=== PATIENT | female | born 1985 | race Caucasian/White ===

== ENCOUNTER → 2018-01-21 07:53 | Outpatient (CLI) | payer OTHER, SELFPAY ==
[2018-01-21 09:41] LABS: Hematocrit 32.3 % (36-46); Hemoglobin 11.2 g/dL (12.0-16.0)
[2018-01-21 11:00] LABS: GTT (PREG) 1 Hour PP 50gm Dose 114 mg/dL (76-139)
== END ==
PROVIDERS: PCP Internal Medicine; Visit Provider Obstetrics & Gynecology
DX: Z34.82 Encounter for supervision of other normal pregnancy, second trimester (principal)
CPT/HCPCS: 36415; 82950; 85014; 85018

== ENCOUNTER → 2018-03-10 10:30 | Outpatient (CLI) | payer OTHER, SELFPAY ==
[2018-03-16 15:16] LABS: Bile Acids, Total 5.5
== END ==
PROVIDERS: PCP Internal Medicine; Visit Provider Obstetrics & Gynecology
DX: L29.9 Pruritus, unspecified (principal)
CPT/HCPCS: 36415; 82239

== ENCOUNTER → 2018-03-24 16:17 | Outpatient (CLI) | payer OTHER, SELFPAY | END | disposition home or self-care (01) | PROVIDERS: PCP Internal Medicine; Visit Provider Obstetrics & Gynecology | DX: O60.03 Preterm labor without delivery, third trimester (principal); Z3A.34 34 weeks gestation of pregnancy | CPT/HCPCS: 59025; G0378; G0379 ==

== ENCOUNTER → 2018-03-31 08:14 | Outpatient (CLI) | payer OTHER, SELFPAY ==
[2018-04-01 08:38] LABS: Strep Grp B PCR NEG for Grp B Strep
== END ==
PROVIDERS: PCP Internal Medicine; Visit Provider Obstetrics & Gynecology
DX: Z34.83 Encounter for supervision of other normal pregnancy, third trimester (principal)
CPT/HCPCS: 87653

== ENCOUNTER 2018-04-02 15:48 | Outpatient (CLI) | payer OTHER, SELFPAY ==
[2018-04-02] MEDS: TERBUTALINE 1 MG/ML VIAL 0.25 MG SUBCUT (17:03)
== END 2018-04-02 17:33 | disposition home or self-care (01) ==
LOC: LABOR 17:12 → OB 04-03 14:57
PROVIDERS: PCP Internal Medicine; Visit Provider Obstetrics & Gynecology
DX: Z34.83 Encounter for supervision of other normal pregnancy, third trimester (principal); Z3A.36 36 weeks gestation of pregnancy; M54.5 Low back pain
CPT/HCPCS: 59025; 59050; 96372; G0378; G0379

== ENCOUNTER 2018-04-14 15:05 | Inpatient (IN) | payer OTHER, SELFPAY ==
[2018-04-14] MEDS: LACTATED RINGERS 1,000 ML 100 ML IV (16:34)
[2018-04-14 16:44] LABS: Add Manual Diff / Slide Review NO; Basophils Percent Auto 0.6 % (0-2); Eosinophils Percent Auto 1.9 % (2-4); Hematocrit 31.7 % (36-46); Hemoglobin 10.5 g/dL (12.0-16.0); Lymphocytes Percent Auto 13.1 % (25-40); Mean Corpuscular Hemoglobin 25.8 PG (26-34); Mean Corpuscular Volume 78.2 fL (80-100); Monocytes Percent Auto 6.6 % (3-14); Neutrophils Absolute Auto 9900 /uL (3000-5900); Neutrophils Percent Auto 77.8 % (50-75); Platelet Count 200 X10^3/uL (150-400); Red Blood Cell Count 4.05 X10^6/uL (4.0-5.2); Red Cell Distribution Width 14.3 % (11.6-14.8); White Blood Cell Count 12.7 X10^3/uL (4.5-11.0)
[2018-04-14 17:06] VITALS: BP 101/62
[2018-04-14] MEDS: LACTATED RINGERS 1,000 ML 125 ML IV ×2 (18:05→22:15)
[2018-04-14] MEDS: CALCIUM CARBONATE 500 MG TAB 1000 MG PO (18:38)
[2018-04-14] MEDS: ONDANSETRON 4 MG/2 ML INJ IV (20:00)
[2018-04-14] MEDS: OXYTOCIN PREMIX 30 UNIT/500 ML PLAST..BAG IV (20:49)
--- NOTE | 2018-04-15 | PATH_ITS ---
[facility] Accession Number: [id number] . 01 Material submitted: . SEGMENTS OF BILATERAL FALLOPIAN TUBES . 02 Diagnosis: Segments of Bilateral Fallopian Tubes, Tubal Ligation: Complete cross-section of segments of fallopian tube x2. MRV/04/17/2018 . 02 Electronically signed: . Linh Hobson MD, Pathologist NPI- [id number] . 01 Gross description: . Received one formalin-filled container labeled with the patient's name and labeled segments of fallopian tubes. The specimen consists of two non-fimbriated, partial cylindrical-shaped portions of tissue. The first measures 0.9 x 0.5 x 0.4 cm; inked blue, trisected, and entirely submitted in cassette A1. The second piece measures 0.7 x 0.5 x 0.5 cm; inked blue, trisected, and entirely submitted in cassette A2. ([id number]) /FRR . 02 Pathologist provided ICD-10: Z30.2 . 02 CPT . 733813 Performed at: 01 [facility] [address], [place], [place] [id number] MD Rl Quiles MD Phone: [phone] Performed at: 02 [facility] [address] [place], [place] [id number] MD Nakul Rodriguez MD Phone: [phone]
[2018-04-15] MEDS: KETOROLAC 30 MG/ML VIAL IV ×2 (00:55→07:19)
[2018-04-15] MEDS: OXYCODONE/ACETAMINOPHEN 5/325 TABLET 2 TAB PO ×4 (03:28→20:17)
[2018-04-15 05:26] LABS: Hematocrit 29.3 % (36-46); Hemoglobin 9.6 g/dL (12.0-16.0)
[2018-04-15] MEDS: LACTATED RINGERS 1,000 ML 750 ML IV (13:30)
--- NOTE | 2018-04-15 14:01 | SUR.OPER ---
Supine on padded OR bed, head on pillow, arms secured on padded arm boards at <90 degrees abduction, legs uncrossed, safety belt at thigh, tape over blanket over lower legs.
[2018-04-15] MEDS: BUPIVACAINE 0.5% W/ EPI (PF) VIAL 30 ML INJ (14:13)
[2018-04-15 14:26] VITALS: BP 95/62; PULSE 80; RESP 10; TEMP 36.2; O2SAT 95
[2018-04-15 14:32] VITALS: BP 100/60; PULSE 82; RESP 10; O2SAT 95
[2018-04-15 14:37] VITALS: BP 111/79; PULSE 86; RESP 12; O2SAT 97
[2018-04-15 14:42] VITALS: BP 101/68; PULSE 76; RESP 12; TEMP 36.1; O2SAT 96
[2018-04-15 14:46] VITALS: BP 103/64; PULSE 76; RESP 12; O2SAT 96
[2018-04-15] MEDS: IBUPROFEN 600 MG TABLET PO (18:38)
[2018-04-15] MEDS: PRENATAL VIT,CALC/IRON/FOLIC 1 TABLET 1 TAB PO (20:28)
[2018-04-15] MEDS: DOCUSATE 250 MG CAPSULE PO (20:30)
[2018-04-16] MEDS: IBUPROFEN 600 MG TABLET PO ×2 (00:09→07:51)
[2018-04-16] MEDS: OXYCODONE/ACETAMINOPHEN 5/325 TABLET 2 TAB PO ×3 (00:10→09:44)
--- NOTE | 2018-05-07 15:56 | PM.OBHP.1 ---
OB HPI Date/Time Date of admission: 04/14/18 Date Patient Seen: 04/14/18 Time Patient Seen: 17:30 History of Present Condition Chief complaint: labor & delivery : 5 Para: 4 Estimated Date of Delivery: 04/29/18 Estimated Gestational Age (weeks): 37+ 6 Narrative: Renea Davidson is a 32 year old female 5 para 4 at 37 and 6 7th weeks gestation Indications Indication for induction OB: history of rapid labor and other (Advanced cervical dilation) History of Present care: good care, initiated at week # (9), number of visits (12) and pounds weight gain (29) Dating criteria: LMP confirmed by 1st trimester US Ultrasounds: normal mid trimester US Obstetrical complications: none Medical complications: none Preadmission Labs Blood type: B (+) positive -: Antibody screen: negative, GBS status: negative, HBsAG: negative, HIV: negative, HSV 1: positive, HSV 2: negative and RPR/VDLR: negative -: Chlamydia screen: not detected and Gonorrhea screen: not detected -: Rubella: immune and Varicella: immune HCAB: negative PAP: Normal Urine: Lactobaccilus 1 hr GTT: 114 Prior (ies) History: 4 spontaneous vaginal deliveries without complication Evaluation Evaluation Baseline heart rate: 125 Variability: Moderate (11-25) monitor accelerations: Present monitor decelerations: Absent Contraction Frequency (minutes): 2 Uterine Contraction Intensity: Moderate Category of Tracing: I Cervical dilation (cm): 4 Cervical effacement (%): 80 station: -2 Laboratory results: Laboratory Tests 04/14/18 04/14/18 04/15/18 16:35 16:35 05:12 WBC 12.7 H RBC 4.05 Hgb 10.5 L 9.6 L Hct 31.7 L 29.3 L MCV 78.2 L MCH 25.8 L MCHC 33.0 RDW 14.3 Plt Count 200 Neut % (Auto) 77.8 H Lymph % (Auto) 13.1 L [place] % (Auto) 6.6 Eos % (Auto) 1.9 L Baso % (Auto) 0.6 Neut # (Auto) 9900 H Blood Type B Positive Antibody Screen Negative PFSH Medical History Asthma (Chronic 1999) Hayfever (Chronic) Herpes (Chronic ~2008) Migraines (Chronic) Painful menstrual periods (Chronic 2013) Psoriasis (Chronic 2003) Surgical History No history of previous surgery (Resolved) Family History Child Age: 6 Leukemia Mother Age: 56 Thyroid cancer Mental health problem Father No problems noted. Family/Other Ephraim's disease Grandmother No problems noted. Social History Smoking Status: Never smoker Meds Home Medications Medication Instructions Recorded Confirmed Type No Known Home Medications 04/14/18 04/14/18 History oxycodone-acetaminophen [Percocet] 2 tab PO Q4-6H PRN #20 tab 04/16/18 Rx Allergies Allergy/AdvReac Type Severity Reaction Status Date / Time No Known Drug Allergies Allergy Verified 04/14/18 15:48 Exam Vital Signs (past 8 hours): Oxygen Delivery Method Room Air Narrative Exam Narrative: Generally: A well-developed, well-nourished white female, in mild distress secondary to contractions Lungs: Clear to auscultation bilaterally Cardiovascular: Regular rate and rhythm Fundal height: 38 cm Estimated weight: 7 lb Extremities: Trace edema, negative Homans Objective Labs Result Diagrams: 04/15/18 05:12 Assessment and Plan (1) 37 weeks gestation of : Current visit: No Status: Acute Plan: Medications: New: oxycodone-acetaminophen 5-325 mg (Percocet) 2 tabs PO Q4-6H PRN pain Plan: Assessment: 32-year-old 5 para 4 at 37 and 6 7th weeks gestation with advanced cervical dilation and contractions Plan: Artificial rupture of membranes Epidural as necessary Pitocin augmentation as needed Expected management to spontaneous vaginal delivery
--- NOTE | 2018-05-07 16:04 | PM.OBPRVD ---
Delivery date: 04/14/18 Intrapartal events: None Induction method: AROM Delivery augmentation: pitocin Delivery monitor: external FHT and external uterine Route of delivery: Episiotomy description: None Laceration description: None Estimated blood loss (mL): 150 Anesthesia type: Epidural Complications: None Narrative: Patient complete and pushed for 17 min. At 10:56 p.m., a live male infant delivered spontaneously over an intact perineum. Nuchal cord x1 was reduced. The remainder of the body delivered without difficulty and was placed on mom's abdomen. The cord was double clamped and cut. Cord bloods were obtained. The placenta delivered intact with a 3 vessel cord at 11:01 p.m.. Apgars 7 at 1 min and 9 at 5 min. No lacerations. Estimated blood loss 150 cc. Epidural analgesia. . Mom and stable to recovery.
--- NOTE | 2018-05-07 16:10 | PM.OBPN.1 ---
Subjective - OB Patient comments: no complaints baby status: doing well feeding status: exclusively breast feeding Date Patient Seen: 04/15/18 Time Patient Seen: 13:35 Exam Vital Signs (past 8 hours): Oxygen Delivery Method Room Air Narrative Exam Narrative: Generally: Mom sitting up in bed, holding , no acute distress Fundus: Firm at U -2 Extremities: Trace edema, negative Homans Objective Labs Result Diagrams: 04/15/18 05:12 Assessment & Plan (1) 37 weeks gestation of : Status: Acute Current Visit: No (2) Normal spontaneous vaginal delivery: Status: Acute Assessment and plan: Assessment: 32-year-old 5 para 5 day # 1. Status post spontaneous vaginal delivery Plan: Anticipate discharge on 04/16/2018 Current Visit: No Plan day: 1 plan OB: routine care Time Spent With Patient Total time spent is greater than 50% in coordination of care (as documented) at patient's floor/unit and/or counseling patient: less than 15 minutes
--- NOTE | 2018-05-07 16:12 | PM.OBDS.1 ---
Discharge Providers Date of admission: 04/14/18 15:05 Primary care physician: MARIIA Gonzalez Consults: 04/15/18 00:49 Consult to Cable Strander Routine Comment: Discharge provider: Deloris Mulligan MD Summary Date Patient Seen: 04/16/18 Time Patient Seen: 08:30 Peripartum Data Delivery Method: Natural Vaginal Laceration description: None Episiotomy description: None Procedures: Spontaneous vaginal delivery Epidural analgesia complications: none Discharge Diagnosis (1) 37 weeks gestation of : Status: Acute (2) Normal spontaneous vaginal delivery: Status: Acute Status at Discharge Functional status at discharge: independent ambulation Overall status at discharge: patient is progressing back to baseline Time Spent with Patient Total time spent providing and/or coordinating discharge services: Less than 30 minutes Objective Labs Result Diagrams: 04/15/18 05:12 Discharge Plan Discharge Plan Patient Disposition: Home Discharge comment: Call with fever, chills, redness or drainage around incision or bleeding vaginally more than a pad in an hour 6 Month follow up appt with Dr. Mulligan May 29 at 3:00. Discharge Med Rec/Prescriptions Prescriptions: New oxycodone-acetaminophen [Percocet] 5-325 mg tablet 2 tab PO Q4-6H PRN (Reason: pain) Qty: 20 RF: 0 ibuprofen 600 mg tablet 600 mg PO TID PRN (Reason: pain) Qty: 30 RF: 2 No Action No Known Home Medications RF: 0 Follow up/Referrals: Deloris Mulligan MD [Physician] - 05/01/18 2:45 pm (2 wks incision check 6 wks PP exam) Alyssa Moscoso ARNP [Primary Care Provider] - Provider Discharge Instructions Diet: Diet as Tolerated Activity: No intercourse Skin/Wound/Dressing Care Report to your healthcare provider any signs of infection, such as:: chills, fever, increased pain and unusual drainage Dressing: Remove outer plastic dressing and guaze after first shower Visit Report/Discharge Packet Instructions: DI for Tubal Ligation Stand Alone Forms: Discharge: Care Visit Report Forms: Stroke Signs & Symptoms Discharge Data Primary Care Provider: Alyssa Moscoso Attending Provider: Deloris Mulligan Admit Date/Time: 04/14/18 15:05 Discharges patient from system. Discharge Date/Time: 04/16/18 13:35
--- NOTE | 2018-05-08 09:42 | P.OP_ITS ---
Operative Date/Time/Diagnoses Date of procedure: 04/15/18 Time of procedure: 14:15 Pre-op diagnosis: Multiparity Desires permanent sterilization Post-op diagnosis: same Procedure: Procedures Operation Date: 04/15/18 13:30 Actual Procedures Side Surgeon p Post Bilateral Tubal Ligation Bilateral Deloris Mulligan MD Indications: Multiparity Desires permanent sterilization Surgeon: Deloris Mulligan Anesthesia Type: General Operative Notes Findings: Uterus 2 cm below U Normal tubes and ovaries Closure Type: primary Specimen(s): portion of left tube and portion of right tube Estimated blood loss (mL): 5 Blood products transfused: none Procedure in detail: After informed consent was obtained, the patient was taken to the operating room where she was placed in the dorsal supine position. After adequate general tracheal anesthesia was achieved, she was prepped and draped in the usual sterile fashion. 2 Allis clamps were placed 3 cm apart just below the umbilical fold. A 1-1/2 to 2 cm incision was made, and carried through to the underlying layer of fascia. The fascia was nicked in the midline and the incision extended bilaterally with Schmidt scissors. The peritoneum was identified, grasped between 2 hemostats, and entered sharply with the Metzenbaum scissors. The left tube was identified and carried out to the fimbriated end with a [place]. A 2-1/2 cm segment of tube was ligated x2 with 0 plain chromic. A 1 cm segment of tube was excised. The ends of the tube were cauterized for hemostasis. This was repeated on the patient's right tube. Hemostasis was achieved. The tubes were returned to the abdomen. The fascia was reapproximated using 0 Vicryl in a running fashion. The subcutaneous layer was copiously irrigated with warm normal saline. 2 simple interrupted sutures with 3 0 Vicryl were placed to reapproximate. The skin was closed with 4 0 undyed Vicryl in a subcuticular fashion. Steri-Strips, 2 x 2, and op site was placed. Sponge, lap, and instrument counts were correct x2. The patient tolerated the procedure well, and was taken to PACU in stable condition. Complications: none Post-operative Condition: stable Disposition: PACU Plan for aftercare: To Center after recovery
== END 2018-04-16 13:35 | disposition home or self-care (01) | DRG 767 ==
PROVIDERS: Admitting Provider Obstetrics & Gynecology; PCP Internal Medicine; Visit Provider Obstetrics & Gynecology
PROC: 0UB70ZZ Excision of Bilateral Fallopian Tubes, Open Approach (ICD-10-PCS; CPT 58605; principal; 2018-04-15 13:30)
DX: O69.81X0 Labor and delivery complicated by cord around neck, without compression, not applicable or unspecified (principal); Z3A.37 37 weeks gestation of pregnancy; Z37.0 Single live birth; Z30.2 Encounter for sterilization
CPT/HCPCS: 01967; 36415; 59050; 59400; 85014; 85018; 85025; 86850; 86900; 86901; G0379; J0330; J1100; J1885; J2405; J2590; J2704; J3010

== ENCOUNTER → 2018-07-15 09:11 | Outpatient (CLI) | payer OTHER, SELFPAY | DX: Z23 Encounter for immunization (principal) | CPT/HCPCS: 90471; 90686 ==

== ENCOUNTER 2019-02-05 06:47 | Day surgery (SDC) | payer OTHER, SELFPAY ==
[2019-02-05] VITALS (14 sets, daily range): BP systolic 89–114; BP diastolic 48–62; PULSE 52–85; RESP 10–17; TEMP 36–36.8; O2SAT 92–100; BMI 26.5
--- NOTE | 2019-02-05 | PATH_ITS ---
[facility] Accession Number: [id number] . 01 Material submitted: . endometrium - ENDOMETRIAL CURETTINGS . 02 Diagnosis: Endometrial Curettings: Portions of late secretory / menstrual phase endometrium; negative for glandular hyperplasia, cytologic atypia, and malignancy. [facility]/02/08/2019 . 02 Electronically signed: . Linh Hobson MD, Pathologist NPI- [id number] . 01 Gross description: . ENDOMETRIAL CURETTINGS: Received in formalin are minute fragments of mucoid and hemorrhagic material measuring 0.5 x 0.5 x 0.3 cm in aggregate. Submitted in toto in 1 cassette. /DM /DM . 02 Pathologist provided ICD-10: N85.00 . 02 CPT . 905270 Performed at: 01 [facility] [address] [id number] MD Rl Quiles MD Phone: [phone] Performed at: 02 [facility] [address] [place], [place] [id number] MD Tawny Cifuentes MD Phone: [phone]
[2019-02-05] MEDS: LACTATED RINGERS 1,000 ML 100 ML IV (07:26)
--- NOTE | 2019-02-05 07:31 | SUR.OPER ---
Lithotomy on padded OR bed, head on pillow, arms secured on padded arm boards at <90 degrees abduction. Legs secured in padded yellow fins stirrups.
--- NOTE | 2019-02-05 07:46 | PM.HP.1 ---
History of Present Illness Date Patient Seen: 02/05/19 Time Patient Seen: 07:47 Chief complaint: [id number] Narrative: Patient is a 33-year-old with menorrhagia who presents for a D&C hysteroscopy and NovaSure endometrial ablation Patient History Medical History (Updated 05/07/18 @ 16:11 by Deloris Mulligan MD) Former smoker (Acute) Asthma (Chronic 1999) Hayfever (Chronic) Herpes (Chronic ~2008) Migraines (Chronic) Painful menstrual periods (Chronic 2013) Psoriasis (Chronic 2003) Surgical History (Updated 01/26/19 @ 08:21 by Dana Lopez RN) History of bilateral tubal ligation (Acute 04/15/18) No history of previous surgery (Resolved) Family History (Updated 03/04/18 @ 12:58 by Beverly Oliva) Child Age: 7 Leukemia Mother Age: 57 Thyroid cancer Mental health problem Father No problems noted. Family/Other Ephraim's disease Grandmother No problems noted. Social History household members: spouse Smoking Status: Former smoker alcohol intake: current Family & Social History Family History (Updated 03/04/18 @ 12:58 by Beverly Oliva) Child Age: 7 Leukemia Mother Age: 57 Thyroid cancer Mental health problem Father No problems noted. Family/Other Ephraim's disease Grandmother No problems noted. Social History: household members spouse Tobacco & Substance use: Smoking Status Former smoker alcohol intake current Substance Use Type does not use Meds Home Medications Medication Instructions Recorded Confirmed Type citalopram 10 mg tablet 10 mg PO DAILY #30 tab 10/19/18 02/05/19 Rx valacyclovir 500 mg tablet 500 mg PO BID #10 tab 12/29/18 02/05/19 Rx medroxyprogesterone 10 mg tablet See Rx Instructions PO .COMPLEX 01/06/19 02/05/19 Rx #100 tab Allergies Allergy/AdvReac Type Severity Reaction Status Date / Time No Known Drug Allergies Allergy Verified 02/05/19 07:08 Exam Vital Signs (past 8 hours): - 02/05/19 07:18 Temperature 97.7 F Pulse Rate 75 Respiratory Rate 17 Blood Pressure 101/62 Pulse Oximetry 92 Oxygen Delivery Method Room Air Narrative Exam Narrative: HEENT: No thyromegaly, no anterior cervical or supraclavicular lymphadenopathy. Lungs:Clear to auscultation bilaterally, no wheezes. Cardiovascular: Regular rate and rhythm, no murmurs, rubs, or gallops. Abdomen: Well-healed scars. No hepatosplenomegaly. No masses palpable. External genitalia: Normal Vagina: Normal Cervix: Normal Bimanual exam: 8 Week size uterus. Mobile. Rectal: No masses. Assessment & Plan Assessment & Plan narrative: Assessment: 33-year-old with menorrhagia Status post tubal ligation Plan: D&C hysteroscopy with NovaSure endometrial ablation The risks, benefits, and alternatives to the procedure were explained to the patient. The risks including bleeding, infection, and uterine perforation. She understands these risks and agrees to proceed. A full par Q was held and consent form was signed Time Spent With Patient Time with patient: 15-24 minutes
--- NOTE | 2019-02-05 07:49 | PM.PREOP ---
Pre-operative Note Interval Note History & Physical reviewed/Exam performed by Physician: Yes Changes to H&P: No
--- NOTE | 2019-02-05 08:18 | SUR.OPER ---
SETTINGS: 4.0 LENGTH 3.5 WIDTH, POWER 77, TIME 92
--- NOTE | 2019-02-05 08:56 | PM.GYNOP.1 ---
Operative Date/Time/Diagnoses Date of procedure: 02/05/19 Time of procedure: 08:56 Pre-op diagnosis: Menorrhagia Post-op diagnosis: same Procedure: Procedures Operation Date: 02/05/19 07:45 Actual Procedures Side Surgeon p D&C Hysteroscopy w/Novasure Endometrial Ablation Not Applicable Deloris Mulligan MD Indications: Menorrhagia Surgeon: Deloris Mulligan Anesthesia Type: General (LMA) Operative Notes Findings: Six week size anteverted uterus Both fallopian tube ostia observed Thickened endometrial lining Closure Type: not applicable Specimen(s): endometrial curettings Estimated blood loss (mL): 10 Procedure in detail: After informed consent was obtained, the patient was taken to the operating room where she was placed in the dorsal supine position. After adequate LMA general anesthesia was achieved, she was placed in the dorsal lithotomy position, and prepped and draped in the usual sterile fashion. A bivalve speculum was placed into the vagina and the anterior lip of the cervix grasped with a single-tooth tenaculum. The cervical os was sequentially dilated to the # 8 Hegar dilator. The hysteroscope passed easily into the endometrial cavity. Both fallopian tube ostia were observed. There were no polyps or fibroids. The hysteroscope was removed. The uterus was measured from the internal os to the fundus of the uterus and measured 4 cm. This was set on the NovaSure catheter as well as the generator. The catheter passed easily into the endometrial cavity. Catheter was opened. The width was 3.5 cm. This was also set on the generator. This indicated a power of 77 w. The cervix was capped, the cavity assessment was performed and passed. The cycle was initiated and lasted 92 seconds. The catheter was closed and removed from the uterus. The single-tooth tenaculum was removed from the anterior lip of the cervix. The bivalve speculum was removed from the vagina Complications: none Post-operative Condition: stable Disposition: PACU Plan for aftercare: Home after recovery
--- NOTE | 2019-02-05 08:59 | SUR.PHASEI ---
0859 eating pudding, taking fluids, mild pain, will medicate. Oriented/drowsy. Resp unlabored, skin warm and dry.
[2019-02-05] MEDS: OXYCODONE/ACETAMINOPHEN 5/325 TABLET 1 TAB PO (09:02)
[2019-02-05] MEDS: fentaNYL 100 MCG/2 ML INJ 50 MCG IV ×2 (09:08→09:23)
--- NOTE | 2019-02-05 09:11 | SUR.PHASEI ---
Was preparing patient to transfer to [facility] when she became tearful - states that she was having a lot of cramping. Desired Rx - given. No nausea, tolerating PO well.
--- NOTE | 2019-02-05 09:21 | SUR.PHASEI ---
Is not calm, conversing, declines more food or fluids, Desires more IV Rx.
--- NOTE | 2019-02-05 09:31 | SUR.PHASEI ---
Calm, states that she's feeling 'much better'.Declines nausea, talking about family.
--- NOTE | 2019-02-05 09:40 | SUR.PHASEI ---
Stable, taking food/fluids. States that she became a little queasy from pudding. Quese-ease given with relief of symptoms.
[2019-02-05] MEDS: ONDANSETRON 4 MG/2 ML INJ IV (09:45)
--- NOTE | 2019-02-05 09:55 | SUR.PHASEI ---
States that nausea is almost getting better.Otherwise calm, stable. Pain level acceptable.
[2019-02-05] MEDS: METOCLOPRAMIDE 10 MG/2 ML INJ IV (09:59)
--- NOTE | 2019-02-05 10:02 | SUR.PHASEI ---
rx given for nausea, slight improvement after first Rx. no emesis, pain well managed, pale.
--- NOTE | 2019-02-05 10:08 | SUR.PHASEI ---
Nausea improving, no longer feels like she may vomit. Preparing to transfer to [facility]. No further vag flow.
--- NOTE | 2019-02-05 10:12 | SUR.PHASEII ---
drifting to sleep,
--- NOTE | 2019-02-05 10:18 | SUR.PHASEII ---
pt arrived to phase II via stretcher. pt sitting up, eyes open and responding to nurse when spoken to. pt brought to bedside. pt reports pain 2/10 at this time and tolerable. Belnida-pad observed to have small amount of red blood. pt denies any nausea at this time. bed in lowest position and call light given to pt. pt appears comfortable at this time.
== END 2019-02-05 10:43 | disposition home or self-care (01) ==
PROVIDERS: PCP Internal Medicine; Visit Provider Obstetrics & Gynecology
PROC: 0U5B8ZZ Destruction of Endometrium, Via Natural or Artificial Opening Endoscopic (ICD-10-PCS; CPT 58563; principal; 2019-02-05 07:45)
DX: N92.0 Excessive and frequent menstruation with regular cycle (principal); R93.89 Abnormal findings on diagnostic imaging of other specified body structures; Z87.891 Personal history of nicotine dependence
CPT/HCPCS: 58563; J1100; J1885; J2250; J2405; J2704; J2765; J3010

== ENCOUNTER → 2020-12-04 16:42 | Outpatient (CLI) | payer OTHER, SELFPAY ==
--- NOTE | 2020-12-04 16:43 | DI.RAD.S_ITS ---
PROCEDURE: XR HAND RT MIN 3V INDICATIONS: arthralgia TECHNIQUE: 3 views of the hand(s) acquired. COMPARISON: None. FINDINGS: Bones: No fractures or dislocations. Carpal bones are normally aligned. No suspicious bony lesions. No osseous erosive changes. No periarticular osteopenia. Soft tissues: No suspicious soft tissue calcifications. IMPRESSION: No fracture. No osseous lesion. If symptoms and/or clinical suspicion for pathology persists, further assessment with repeat radiographs (7-10 days) or advanced imaging (e.g. CT, MRI or bone scan) should be considered. Dictated by: Liliana Celis MD, PhD on 12/04/2020 at 17:43 Approved by: Liliana Celis MD, PhD on 12/04/2020 at 17:43
--- NOTE | 2020-12-04 16:43 | DI.RAD.S_ITS ---
PROCEDURE: XR ELBOW RT MIN 3V INDICATIONS: arthralgia TECHNIQUE: 3 views of the elbow were acquired. COMPARISON: None. FINDINGS: Bones: No fractures or dislocations. No suspicious bony lesions. Soft tissues: No elbow joint effusion. No suspicious soft tissue calcifications. IMPRESSION: No fracture. No osseous lesion. If symptoms and/or clinical suspicion for pathology persists, further assessment with repeat radiographs (7-10 days) or advanced imaging (e.g. CT, MRI or bone scan) should be considered. Dictated by: Liliana Celis MD, PhD on 12/04/2020 at 17:42 Approved by: Liliana Celis MD, PhD on 12/04/2020 at 17:42
[2020-12-04 18:14] LABS: Add Manual Diff / Slide Review NO; Basophils Absolute Auto 0 /uL (0-100); Basophils Percent Auto 0.1 % (0-2); Eosinophils Absolute Auto 100 /uL (0-450); Eosinophils Percent Auto 0.9 % (2-4); Hemoglobin 14.4 g/dL (12.0-16.0); Lymphocytes Absolute Auto 2200 /uL (1100-4500); Lymphocytes Percent Auto 16.5 % (25-40); Mean Corpuscular HGB Conc 34.3 % (30-36); Mean Corpuscular Volume 84.5 fL (80-100); Monocytes Absolute Auto 1400 /uL (0-900); Monocytes Percent Auto 10.8 % (3-14); Neutrophils Absolute Auto 9400 /uL (1500-7000); Neutrophils Percent Auto 71.7 % (50-75); Platelet Count 297 X10^3/uL (150-400); Red Blood Cell Count 4.97 X10^6/uL (4.0-5.2); Red Cell Distribution Width 13.3 % (11.6-14.8); White Blood Cell Count 13.1 X10^3/uL (4.5-11.0)
[2020-12-04 18:22] LABS: BUN Creatinine Ratio 22.5 (6-22); Blood Urea Nitrogen 16 mg/dL (7-17); C-Reactive Protein Quant < 0.5 mg/dL (<1.0); Calcium 9.2 mg/dL (8.4-10.2); Carbon Dioxide 23 mmol/L (22-32); Chloride 102 mmol/L (98-107); Estimated Glomerular Filt Rate > 60.0 mL/min (>60); Glucose 113 mg/dL (70-100); HEMOLYSIS 28 (0-50); Potassium 3.5 mmol/L (3.4-5.1); Sodium 137 mmol/L (137-145)
[2020-12-04 18:46] LABS: Erythrocyte Sedimentation Rate 2 MM/HR (0-20)
[2020-12-04 18:51] LABS: TSH w/ Reflex to FT4 2.83 uIU/mL (0.47-4.68)
[2020-12-04 19:09] LABS: Vitamin B12 743 pg/mL (239-931)
== END ==
PROVIDERS: PCP Internal Medicine; Referring Provider Internal Medicine; Visit Provider Internal Medicine
DX: M25.50 Pain in unspecified joint (principal)
CPT/HCPCS: 73080; 73130; 80048; 82607; 84443; 85025; 85651; 86140

== ENCOUNTER → 2021-01-24 12:10 | Outpatient (CLI) | payer OTHER, SELFPAY | PROVIDERS: PCP Internal Medicine; Referring Provider Internal Medicine; Visit Provider Internal Medicine | DX: R55 Syncope and collapse (principal) | CPT/HCPCS: 93242 ==

== ENCOUNTER 2021-02-05 15:21 | Emergency (ER) | payer OTHER, SELFPAY ==
[2021-02-05 15:23] VITALS: BP 140/63; PULSE 94; RESP 20; TEMP 37.2; O2SAT 97
--- NOTE | 2021-02-05 15:26 | DI.RAD.S_ITS ---
PROCEDURE: XR CHEST 2V INDICATIONS: cp after lung biopsy TECHNIQUE: 2 views of the chest were acquired. COMPARISON: None. FINDINGS: Surgical changes and devices: None. Lungs and pleura: Lungs are clear. No pleural effusions or pneumothorax. Mediastinum: Mediastinal contours are normal. Heart size is normal. Bones and chest wall: No suspicious bony abnormalities. Soft tissues appear unremarkable. IMPRESSION: Source of chest pain after lung biopsy is not identified. Dictated by: Román Jerome M.D. on 02/05/2021 at 15:45 Approved by: Román Jerome M.D. on 02/05/2021 at 15:46
--- NOTE | 2021-02-05 16:48 | ED_ITS ---
HPI - Chest Pain General Chief Complaint: Chest Pain Stated Complaint: Biopsy of Lungs, Chest Pain Time Seen by Provider: 02/05/21 16:48 Source: patient Mode of arrival: Ambulatory History of Present Illness HPI narrative: This is a 35-year-old female who comes emergency department with complaint chest pain. Patient states this morning approximately 10:30 a.m. she had had bronchoscopy. Patient states that afterwards she felt fine. About 30- 40 fin minutes prior to arrival she began to have chest discomfort to somewhat intermittent and centralized. She states it is worse with deep inspiration and movement. Patient feels a little lightheaded or dizzy. She has not had any syncope. She does not feel particularly short of breath. She has not any nausea or vomiting. She has not had any other GI or urinary symptoms. She is not appreciate any swelling in her chest or new skin changes or puffiness. Patient states she does not take any blood thinners. She her bronchoscopy at [facility] for evaluation for sarcoid and rule out of lymphoma. At this time they are most suspicious that she has sarcoidosis. Patient does take duloxetine, gabapentin, prednisone and Bactrim daily. She denies other surgeries or interventions. She denies any tobacco use. Patient states Dr. Grier was the underwriting consultant who performed her bronchoscopy. Related Data Home Medications Medication Instructions Recorded Confirmed gabapentin 300 mg capsule 300 mg PO DAILY cap 01/11/21 01/11/21 pantoprazole 40 mg tablet,delayed 40 mg PO DAILY tab 01/11/21 01/11/21 release sulfamethoxazole 800 1 tab PO 3XW tab 01/11/21 01/11/21 mg-trimethoprim 160 mg tablet Previous Rx's Medication Instructions Recorded valacyclovir 500 mg tablet 500 mg PO BID #10 tab 05/17/20 (Valtrex) prednisone 20 mg tablet 40 mg PO DAILY #60 tab 12/26/20 duloxetine 40 mg capsule,delayed 40 mg PO DAILY #90 cap 02/01/21 release tramadol 50 mg tablet (Ultram) 50 mg PO Q6H PRN #5 tab 02/05/21 Allergies Allergy/AdvReac Type Severity Reaction Status Date / Time No Known Drug Allergies Allergy Verified 01/11/21 10:34 Review of Systems Review of Systems ROS Unobtainable: All systems reviewed & are unremarkable except as noted in HPI and below Patient History Medical History Asthma (1999) Chronic myofascial pain Former smoker Grand multiparity (09/29/17) Hayfever Herpes (~2008) Migraines Painful menstrual periods (2013) Psoriasis (2003) Sarcoid arthropathy Sarcoidosis Surgical History History of bilateral tubal ligation (04/15/18) No history of previous surgery Family History Child Age: 9 Leukemia Mother Age: 59 Thyroid cancer Mental health problem Father No problems noted. Family/Other Ephraim's disease Grandmother No problems noted. Social History household members: spouse Smoking Status: Former smoker alcohol intake: current Smoking Status: Former smoker Substance Use Type: does not use Exam Narrative Exam Narrative: GENERAL: Alert and oriented x three, female in mild distress. HEENT: Head normocephalic, atraumatic, EOMI, pupils reactive, face symmetric, moist mucous membranes NECK: Supple, full range of motion CARDIOVASCULAR: Regular rate and rhythm without murmurs, rubs or gallops. Patient does not have any anterior reproducible chest pain. No subcutaneous emphysema. No bruising, ecchymosis or other skin changes are appreciated. RESPIRATORY: Breath sounds equal bilaterally, no wheezes rales or rhonchi. No tachypnea accessory muscle use. ABDOMEN: Soft, nontender. Normoactive bowel sounds all 4 quadrants. No guarding or rebound, rigidity, no mass : No CVA tenderness EXTREMITIES: Normal range of motion, no clubbing or edema. Neurovascularly intact NEUROLOGICAL: Cranial nerves II through XII grossly intact. Moving all extremities SKIN: Warm, dry, no petechiae, no rashes or lesions. Initial Vital Signs Initial Vital Signs: Vital Signs Temperature 98.9 F 02/05/21 15:23 Pulse Rate 94 H 02/05/21 15:23 Respiratory Rate 20 02/05/21 15:23 Blood Pressure 140/63 02/05/21 15:23 Pulse Oximetry 97 02/05/21 15:23 Course Orders Ordered: ED Orders 02/05/21 15:26 Chest [XR chest 2V] Stat 02/05/21 15:38 Basic Metabolic Panel Stat Complete Blood Count AUTO DIFF Stat Discontinued Medications Sodium Chloride (Normal Saline 0.9%) 1,000 mls @ 1,000 mls/hr IV BOLUS ONE Stop: 02/05/21 18:02 Last Admin: 02/05/21 17:22 Dose: 1,000 mls/hr Documented by: ADAL Morphine Sulfate (Morphine 4 Mg/Ml Inj) 4 mg IV NOW ONE Stop: 02/05/21 17:04 Last Admin: 02/05/21 17:18 Dose: 4 mg Documented by: ADAL Consultations Consultation #1: Spoke with Dr. Barajas, with pulmonology at [facility]. Discussed patient's evaluation here in the department which is reassuring. Patient's bronchoscopy he states her biopsies were not near any hi gh risk areas today. Patient initially was receiving some fluids but she deferred completing these. She did have a dose of pain medication here. Given few tablets of narcotic pain medicine. Patient has follow-up later this week with Rheumatology but at the same facility that she had her bronchoscopy at. Return precautions were discussed. All questions were answered. Vital Signs Vital signs: Vital Signs - 8 hr 02/05/21 15:23 02/05/21 17:26 Temperature 98.9 F Pulse Rate 94 H 98 H Respiratory Rate 20 14 Blood Pressure 140/63 Pulse Oximetry 97 98 MDM - Chest Pain Lab Data Result diagrams: 02/05/21 15:38 02/05/21 15:38 Labs: Lab Results 02/05/21 02/05/21 Range/Units 15:38 15:38 WBC 19.4 H (4.5-11.0) X10^3/uL RBC 4.89 (4.0-5.2) X10^6/uL Hgb 14.2 (12.0-16.0) g/dL Hct 42.9 (36-46) % MCV 87.7 (80-100) fL MCH 29.1 (26-34) PG MCHC 33.1 (30-36) % RDW 14.2 (11.6-14.8) % Plt Count 244 (150-400) X10^3/uL Neut % (Auto) 79.6 H (50-75) % Lymph % (Auto) 12.6 L (25-40) % [place]in[place] % (Auto) 7.4 (3-14) % Eos % (Auto) 0.3 L (2-4) % Baso % (Auto) 0.1 (0-2) % Neut # (Auto) 38895 H (6197-4435) /uL Lymph # (Auto) 2400 (1969-1158) /uL Seminole # (Auto) 1400 H (0-900) /uL Eos # (Auto) 100 (0-450) /uL Baso # (Auto) 0 (0-100) /uL Sodium 138 (137-145) mmol/L Potassium 3.8 (3.4-5.1) mmol/L Chloride 104 (98-107) mmol/L Carbon Dioxide 28 (22-32) mmol/L BUN 21 H (7-17) mg/dL Creatinine 0.91 (0.52-1.04) mg/dL Estimated GFR > 60.0 (>60) mL/min BUN/Creatinine Ratio 23.1 H (6-22) Glucose 103 H (70-100) mg/dL Calcium 9.3 (8.4-10.2) mg/dL Imaging Data Chest x-ray: Radiologist's Impression: [address] [id number] ReportSigned Patient: Renea Davidson [facility]#: [id number]: 1985Acct:[id number]/Sex: 35 / FDate of Service: 02/05/21Loc: EDAccession Number: [id number] Procedure: XR chest 2V Ordering Provider: Harriett Hayes D.O. PROCEDURE: XR CHEST 2V INDICATIONS: cp after lung biopsy TECHNIQUE: 2 views of the chest were acquired. COMPARISON: None. FINDINGS: Surgical changes and devices: None. Lungs and pleura: Lungs are clear. No pleural effusions or pneumothorax. Mediastinum: Mediastinal contours are normal. Heart size is normal. Bones and chest wall: No suspicious bony abnormalities. Soft tissues appear unremarkable. IMPRESSION: Source of chest pain after lung biopsy is not identified. Dictated by: Román Jerome M.D. on 02/05/2021 at 15:45 Approved by: Román Jerome M.D. on 02/05/2021 at 15:46 MDM Narrative Medical decision making narrative: This is a 35-year-old female who developed chest pain several hours after bronchoscopy with biopsy earlier today. Patient did contact her pulmonology team and was instructed to come to the emergency department for evaluation. Chest x-ray here shows no acute changes. Her exam at this time is reassuring. Patient has a heart rate of 94 but is afebrile and has appropriate blood pressure and O2 at 97% room air. She does have elevated leukocytosis patient has also been chronically taking prednisone which can sometimes cause this as well. Patient and I discussed side symptoms to watch for reasons to return emergently and she feels comfortable returning home at this time. Discharge Plan Departure Patient Disposition: Home Clinical Impression: Status post bronchoscopy with biopsy, Chest pain Activity Restrictions/Additional Instructions: Follow up with your underwriting consultant at your scheduled follow-up. Take medication as prescribed. This medication can make you sleepy do not drive, perform hazardous activities or make any major decisions while taking it. This medication will make you constipated please take a stool softener once to twice daily until stools are soft and regular. Prescription Please return for fevers, new or worsening chest pain, shortness of breath, swelling or puffiness of your chest, passing out, persistent vomiting, new bruising or discoloration of her chest or other new or concerning symptoms. Prescriptions: New tramadol [Ultram] 50 mg tablet 50 mg PO Q6H PRN (Reason: pain) Qty: 5 RF: 0 No Action valacyclovir [Valtrex] 500 mg tablet 500 mg PO BID Qty: 10 RF: 3 prednisone 20 mg tablet 40 mg PO DAILY Qty: 60 RF: 3 pantoprazole 40 mg tablet,delayed release (DR/EC) 40 mg PO DAILY RF: 0 gabapentin 300 mg capsule 300 mg PO DAILY RF: 0 sulfamethoxazole-trimethoprim 800-160 mg tablet 1 tab PO 3XW RF: 0 duloxetine 40 mg capsule,delayed release(DR/EC) 40 mg PO DAILY Qty: 90 RF: 3 Referrals: Randolph King MD [Primary Care Provider] -
[2021-02-05 17:14] LABS: BUN Creatinine Ratio 23.1 (6-22); Blood Urea Nitrogen 21 mg/dL (7-17); Calcium 9.3 mg/dL (8.4-10.2); Carbon Dioxide 28 mmol/L (22-32); Chloride 104 mmol/L (98-107); Estimated Glomerular Filt Rate > 60.0 mL/min (>60); Glucose 103 mg/dL (70-100); HEMOLYSIS < 15 (0-50); Potassium 3.8 mmol/L (3.4-5.1); Sodium 138 mmol/L (137-145)
[2021-02-05 17:17] LABS: Add Manual Diff / Slide Review NO; Basophils Absolute Auto 0 /uL (0-100); Basophils Percent Auto 0.1 % (0-2); Eosinophils Absolute Auto 100 /uL (0-450); Eosinophils Percent Auto 0.3 % (2-4); Hematocrit 42.9 % (36-46); Hemoglobin 14.2 g/dL (12.0-16.0); Lymphocytes Absolute Auto 2400 /uL (1100-4500); Lymphocytes Percent Auto 12.6 % (25-40); Mean Corpuscular HGB Conc 33.1 % (30-36); Mean Corpuscular Hemoglobin 29.1 PG (26-34); Mean Corpuscular Volume 87.7 fL (80-100); Monocytes Absolute Auto 1400 /uL (0-900); Monocytes Percent Auto 7.4 % (3-14); Neutrophils Absolute Auto 15500 /uL (1500-7000); Neutrophils Percent Auto 79.6 % (50-75); Platelet Count 244 X10^3/uL (150-400); Red Blood Cell Count 4.89 X10^6/uL (4.0-5.2); Red Cell Distribution Width 14.2 % (11.6-14.8); White Blood Cell Count 19.4 X10^3/uL (4.5-11.0)
[2021-02-05] MEDS: MORPHINE 4 MG/ML INJ IV (17:18)
[2021-02-05] MEDS: SODIUM CHLORIDE 0.9% 1,000 ML 1000 ML IV (17:22)
[2021-02-05 17:26] VITALS: PULSE 98; RESP 14; O2SAT 98
== END 2021-02-05 18:35 | disposition home or self-care (01) ==
PROVIDERS: Emergency Provider Emergency Medicine; PCP Internal Medicine
DX: Z98.890 Other specified postprocedural states (principal); R07.9 Chest pain, unspecified
CPT/HCPCS: 36415; 71046; 80048; 85025; 96361; 96374; 99284; J2270

== ENCOUNTER → 2021-08-13 17:38 | Outpatient (CLI) | payer OTHER, SELFPAY ==
[2021-08-13 19:06] LABS: Appearance Urine UA CLEAR; Bilirubin Urine UA NEGATIVE (NEGATIVE); Color Urine UA YELLOW; Glucose Urine UA NEGATIVE (Negative); Ketones Urine UA TRACE (NEGATIVE); Leukocyte Esterase Urine UA NEGATIVE (NEGATIVE); Nitrite Urine UA NEGATIVE (Negative); Occult Blood Urine UA TRACE-INTACT (Negative); Protein Urine UA NEGATIVE (Negative); Specific Gravity Urine UA 1.015 (1.000-1.035); Urobilinogen Urine UA 0.2 E.U./dL (0.2)
[2021-08-13 19:20] LABS: pH Urine UA 5.5 (4.5-8.0)
== END ==
PROVIDERS: PCP Internal Medicine; Referring Provider Obstetrics & Gynecology; Visit Provider Obstetrics & Gynecology
DX: N39.0 Urinary tract infection, site not specified (principal)
CPT/HCPCS: 81003

== ENCOUNTER → 2021-10-29 15:37 | Outpatient (CLI) | payer OTHER, SELFPAY ==
[2021-10-29 18:22] LABS: COVID19 -Nasal RAPID Negative (Negative)
== END ==
PROVIDERS: PCP Internal Medicine; Visit Provider Obstetrics & Gynecology
DX: Z01.812 Encounter for preprocedural laboratory examination (principal); Z20.822 Contact with and (suspected) exposure to COVID-19
CPT/HCPCS: 87635

== ENCOUNTER 2021-10-31 13:15 | Observation (INO) | payer OTHER, SELFPAY ==
[2021-10-24 13:54] VITALS: BMI 29.8
[2021-10-30] VITALS (16 sets, daily range): BP systolic 92–130; BP diastolic 54–82; PULSE 68–109; RESP 13–22; TEMP 36.2–37.4; O2SAT 92–100; BMI 29.8
--- NOTE | 2021-10-30 | PATH_ITS ---
[facility] Accession Number: [id number] . 01 Material submitted: . uterus - UTERUS AND BILATERAL FALLOPIAN TUBES . 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 Myometrium with patchy regions suggestive of possible adenomyosis; poor tissue orientation is obscuring. Uterine serosa with no significant histomorphologic abnormality. Attached fallopian tube with hematosalpinx, complete cross sections; negative for epithelial atypia or malignancy. Detached fallopian tube with intraluminal blood, complete cross section; negative for epithelial atypia or malignancy. [facility] 11/01/2021 1728 Local . 02 Electronically signed: . Linh Hobson MD, Pathologist NPI- [id number] . 01 Gross description: . Received in formalin labeled with the patient's name and additionally labeled uterus and bilateral fallopian tubes is a disrupted uterus without cervix weighing 26 grams and measuring 4.5 x 4.3 x 2.5 cm. Given the heavily disrupted nature of the specimen, orientation cannot be determined. The serosal surface is brannon-brown smooth and glistening. The disrupted specimen is sectioned revealing brannon whorled cut surfaces with no masses or lesions identified. Well-defined endometrial cavity is not seen, but areas possibly representing endometrium with a thickness of less than 1.0 mm are sampled. There is an attached fimbriated fallopian tube measuring 6.4 cm in length and up to 0.6 cm in diameter, and a detached disrupted fimbriated fallopian tube which in total measures 6.7 cm in length and up to 0.6 cm in diameter. The serosal surfaces are brannon-brown smooth and glistening with a few simple paratubal cysts. The tubes are serially sectioned revealing that the attached fallopian tube has an area of dilatation with a lumen measuring 0.4 cm in greatest dimension with hemorrhagic luminal contents. No masses or lesions are identified. The detached tube has a stellate pinpoint lumen with no masses or lesions identified. Arc Welder Apprentice sections are submitted as follows: . A1-A3 - Uterus with possible endometrial cavity. A4 - Attached fallopian tube. A5 - Detached fallopian tube. ([id number]) /[facility] 10/31/2021 1822 Local . 02 Pathologist provided ICD-10: N99.85, N94.6 . 02 CPT . 018214 Specimen Comment: A courtesy copy of this report has been sent to [phone], [phone] Specimen Comment: [id number] Performed at: 01 [facility] [address] [address], [place], [place] [id number] MD Rl Quiles MD Phone: [phone] Performed at: 02 [facility] [address] [place] [id number] MD Tawny Cifuentes MD Phone: [phone]
[2021-10-30] MEDS: LACTATED RINGERS 1,000 ML 42 ML IV (08:40)
--- NOTE | 2021-10-30 09:10 | PM.PREOP ---
Pre-operative Note COVID-19 COVID-19 status: Negative Result date/Date tested (Pos, Neg/Pending): 10/29/21 Criteria for continued procedure: Non-surgical alternatives not available or appropriate per current SOC Interval Note History & Physical reviewed/Exam performed by Physician: Yes Changes to H&P: No H&P completed within 30 days and has changed as indicated here:: 10/25/21
[2021-10-30] MEDS: ACETAMINOPHEN IV 1,000 MG/100 ML VIAL 400 MG IV (09:35)
[2021-10-30] MEDS: CEFAZOLIN 2 GM/20 ML SYRINGE IV (09:43)
[2021-10-30] MEDS: BUPIVACAINE 0.5% (PF) 30 ML, EPINEPHrine 0.15 MG INJ (10:17)
[2021-10-30] MEDS: ROPIVACAINE 0.2% PF 2 MG/ML 10ML AMP 20 ML INJ (10:18)
--- NOTE | 2021-10-30 10:31 | SUR.OPER ---
Lithotomy on padded OR bed. [place] Pad Positioner under torso. Head on pillow, arms padded and tucked at sides. Legs secured in padded yellow fins stirrups.
--- NOTE | 2021-10-30 11:00 | P.OP_ITS ---
Operative Date/Time/Diagnoses Date of procedure: 10/30/21 Time of procedure: 11:00 Pre-op diagnosis: Post ablation syndrome Pelvic pain Post-op diagnosis: same Procedure & Clinicians Procedure: Procedures Operation Date: 10/30/21 09:15 Actual Procedure Side Surgeon p Laparoscopic Supracervical Hysterectomy w. bilateral salpingectomy Deloris Mulligan MD Indications: Post ablation syndrome Pelvic pain Surgeon: Deloris Mulligan Vacuum Form Operator: January Baptiste Anesthesia Type: General and Local Operative Notes Findings: 7 week size anteverted uterus Hematosalpinx Normal ovaries bilaterally Normal appendix Normal liver and gallbladder Closure Type: primary Specimen(s): left tube, right tube and uterus Applied: catheter (Removed at the end of the case) Estimated blood loss (mL): 10 Blood products transfused: none Procedure in detail: The patient was taken to the operating room where she was placed in the dorsal supine position. After adequate general endotracheal anesthesia was achieved, she was placed in the dorsal lithotomy position, and prepped and draped in the usual sterile fashion. A timeout was performed. A bivalve speculum was placed into the vagina and the anterior lip of the cervix grasped with a single-tooth tenaculum. The cervical os was sequentially dilated until the ZUMI uterine manipulator could pass easily into the endometrial cavity. The single-tooth tenaculum was removed from the anterior lip of the cervix, and the bivalve speculum was removed from the vagina. Attention was then turned to the abdomen where 6 mL of half percent Marcaine with epinephrine were injected in the umbilical fold. A 5 mm incision was made. The Verees needle was placed into the peritoneal cavity, and its placement confirmed by aspiration and drop test. The Verees needle was removed. A 5 mm trocar was placed without difficulty. 2 other incisions were made 4 cm lateral to the umbilicus after 5 mL of half percent Marcaine with epinephrine were injected. These were 5 mm incisions. Two 5 mm trocars were placed under direct visualization. The right tube was grasped with an atraumatic grasper. Using the plasma kinetic with settings of 40 W the mesosalpinx was cauterized and cut all the way down to the cornua of the uterus. The cornua of the uterus was then grasped with an atraumatic grasper. The utero-ovarian ligaments were cauterized and cut. The round lig ament and broad ligament was cauterized and cut with plasma kinetic. Hemostasis was achieved. The bladder flap was created using the plasma kinetic with cautery and cut longterm across. The uterine arteries on the right side were extensively cauterized with plasma kinetic. All of this was repeated on the left side. The remainder of the bladder flap was created using the plasma kinetic, and the bladder taken down off the lower uterine segment and cervix. Using the Endoloop, the cervix was amputated from the uterus 2 cm above the uterosacral ligaments, after the ZUMI uterine manipulator was removed from the uterus. There was a small amount of bleeding noted from the posterior edge of the cervix, and this was cauterized for hemostasis. A sponge stick was placed into the vagina. 6 mL of half percent Marcaine with epinephrine were injected above the pubic symphysis. A 12 mm trocar was placed. An Endobag was placed through the suprapubic trocar and the uterus, and tubes were placed into the Endobag. The trocar was removed. The Cal placed into the endobag. The uterus was hand morcellated in approximately 4 pieces. The Endobag was removed from the peritoneal cavity. The pelvis was copiously irrigated with warm normal saline. No bleeding was noted. The instruments were removed from the abdomen. The CO2 was allowed to escape. The suprapubic incision was closed on the fascia with 0 Vicryl. Two simple interrupted sutures with 3-0 Vicryl were placed in the subcutaneous layer on the suprapubic incision. All of the incisions were closed with 4-0 Biosyn in a subcuticular fashion. The moistened sponge stick was removed from the vagina. Sponge, lap, and instrument counts were correct x- 2. The patient tolerated the procedure well, was taken to PACU in stable cond ition. Complications: none Post-operative Condition: stable Disposition: PACU Plan for aftercare: To Acute Care after recovery
[2021-10-30] MEDS: ONDANSETRON 4 MG/2 ML INJ IV (11:25)
[2021-10-30] MEDS: OXYCODONE IR 5 MG TABLET PO ×2 (11:26→15:01)
[2021-10-30] MEDS: hydrOXYzine 50 MG/ML INJ 25 MG IM (11:26)
[2021-10-30] MEDS: HYDROMORPHONE 2 MG INJ IV ×4 (11:28→12:00)
[2021-10-30] MEDS: LACTATED RINGERS 1,000 ML 100 ML IV ×2 (13:40→22:49)
--- NOTE | 2021-10-30 15:26 | PC.NURSE ---
1500 Patient requested pain medication,gave her oxycodone.Resting.
[2021-10-30] MEDS: KETOROLAC 30 MG/ML VIAL IV ×2 (16:41→22:48)
--- NOTE | 2021-10-30 16:51 | PC.NURSE ---
Toradol given IV for pain scale of 8/10l; called to get orders to help with pain.I voiding without problems.
[2021-10-30] MEDS: OXYCODONE IR 10 MG TABLET PO ×2 (17:20→22:14)
--- NOTE | 2021-10-30 17:23 | PC.NURSE ---
1720 Oxycodone given to patient for pain scale of 7/10; transferred to Acute Care via W/C alert and oriented. Acompanied by .
[2021-10-30] MEDS: ACETAMINOPHEN 325 MG TABLET 650 MG PO ×2 (18:23→23:54)
[2021-10-30] MEDS: MORPHINE 2 MG/ML INJ IV ×2 (20:58→23:55)
[2021-10-30] MEDS: GABAPENTIN 300 MG CAPSULE PO (20:59)
[2021-10-30] MEDS: valACYclovir 500 MG TABLET PO (20:59)
[2021-10-30] MEDS: DOCUSATE 100 MG CAPSULE 200 MG PO (20:59)
--- NOTE | 2021-10-30 23:08 | PC.NURSE ---
Addendum entered by Carmenza Anne R.N. 10/31/21 06:35: Stated when she sat up in bed this morning the room started to spin and she had to focus on the clock until the feeling went away which lasted approximately 30 seconds. BP 153/85 with HR of 72. No increase in pain; has been 6-8 most of night but states 6/10 is tolerable. Has also had ice packs to abdomen. Denies any other symptoms. Original Note: Patient is alert and oriented. Breath sounds CTA with RA sat of 99%. HRR. Denied nausea and tolerating apple juice and crackers. Abdomen is mildly distended and tender to touch. BT hypoactive and has not yet passed flatus. Has been voiding on toilet and denied dysuria, frequency or urgency. Is able to move herself in bed and was up to bathroom with SBA. Allevyn dressings to abdomen x 4 all CDI. Belinda-pad with small amount reddish-brown drainage noted. Has been having some pain control issues and was medicated with on previous shift with oxycodone but still not comfortable and wanting more pain medication so Dr Faustin contacted and order received for IV Morphine which was given and patient states it took her pain down to 6/10. Was again medicated with oxycodone at 2214 and scheduled Toradol at 2248. Did not want additional Morphine at the time Toradol was given as didn't want to double up but is aware she can have Morphine q1h. Is wearing bilateral calf SCD's. Fall risk score is moderate but bed alarm not activated as patient is agreeable to calling for assistance when she needs to get out of bed. Discussed importance of CDB, splinting incision, and mobilizing. Declined to walk in proctor at time of assessment related to pain.
[2021-10-31] VITALS (7 sets, daily range): BP systolic 111–153; BP diastolic 62–85; PULSE 62–110; RESP 16–18; TEMP 36–37.2; O2SAT 96–100
[2021-10-31] MEDS: MORPHINE 2 MG/ML INJ IV ×6 (01:09→21:37)
[2021-10-31] MEDS: OXYCODONE IR 10 MG TABLET PO ×3 (02:26→15:33)
[2021-10-31] MEDS: KETOROLAC 30 MG/ML VIAL IV ×2 (05:08→10:56)
[2021-10-31] MEDS: ACETAMINOPHEN 325 MG TABLET 650 MG PO ×3 (05:55→18:09)
[2021-10-31 06:32] LABS: Add Manual Diff / Slide Review NO; Basophils Absolute Auto 0 /uL (0-100); Basophils Percent Auto 0.3 % (0-2); Eosinophils Absolute Auto 0 /uL (0-450); Eosinophils Percent Auto 0.4 % (2-4); Hemoglobin 12.8 g/dL (12.0-16.0); Lymphocytes Absolute Auto 800 /uL (1100-4500); Lymphocytes Percent Auto 9.1 % (25-40); Mean Corpuscular HGB Conc 34.5 % (30-36); Mean Corpuscular Hemoglobin 29.3 PG (26-34); Mean Corpuscular Volume 84.9 fL (80-100); Monocytes Absolute Auto 1000 /uL (0-900); Monocytes Percent Auto 11.3 % (3-14); Neutrophils Absolute Auto 7300 /uL (1500-7000); Neutrophils Percent Auto 78.9 % (50-75); Platelet Count 233 X10^3/uL (150-400); Red Blood Cell Count 4.36 X10^6/uL (4.0-5.2); White Blood Cell Count 9.3 X10^3/uL (4.5-11.0)
[2021-10-31 06:37] LABS: Blood Urea Nitrogen 9 mg/dL (7-17); Calcium 9.3 mg/dL (8.4-10.2); Carbon Dioxide 28 mmol/L (22-32); Chloride 105 mmol/L (98-107); Estimated Glomerular Filt Rate > 60.0 mL/min (>60); Glucose 122 mg/dL (70-100); HEMOLYSIS < 15 (0-50); Potassium 4.5 mmol/L (3.4-5.1); Sodium 138 mmol/L (137-145)
[2021-10-31] MEDS: DULOXETINE 20 MG CAPSULE 40 MG PO (09:03)
[2021-10-31] MEDS: ONDANSETRON 4 MG/2 ML INJ IV (09:04)
[2021-10-31] MEDS: valACYclovir 500 MG TABLET PO ×2 (09:04→20:19)
[2021-10-31] MEDS: DOCUSATE 100 MG CAPSULE 200 MG PO ×2 (09:04→20:19)
[2021-10-31] MEDS: FOLIC ACID 1 MG TABLET PO (09:04)
[2021-10-31] MEDS: PANTOPRAZOLE DR 40 MG TABLET PO (09:04)
[2021-10-31] MEDS: LACTATED RINGERS 1,000 ML 100 ML IV ×2 (09:06→18:10)
[2021-10-31] MEDS: HYDROCORTISONE 100 MG/2 ML VIAL IV (10:56)
[2021-10-31] MEDS: METOCLOPRAMIDE 10 MG/2 ML INJ IV (12:56)
--- NOTE | 2021-10-31 15:56 | CM.DANOTE ---
Patient is a 36 yo female who was admitted on 10/30/21 for hysterectomy. Pt has [employer] for insurance and her PCP is Dr. Randolph King. EMR was reviewed. Per OBGYN, pt with sarcoidosis at baseline which is contributing to her pain management issues and may not be stable for d/c yet today. OBGYN to consult with pt's PCP Dr. King. SW met bedside with pt and explained role and she confirms she lives at home in [place] with her spouse and young kids and is active and independent at baseline. Pt does not use DME and works. Pt denies any hx of HH or SNF. Pt states her spouse took a few days off work to assist and help take care of their kids, especially their 3 year old as he will have a hard time as he loves to snuggle. Pt states when her has to go back to work then her Mother nadeem will stay to assist. Pt does not anticipate any d/c needs other than her pain management issues and is thankful that Dr. Mulligan is consulting with Dr. King. Plan: SW to follow closely for better pain control for plan of d/c to home via spouse POV tonight or tomorrow and any further identified discharge planning needs. RUY Proctor Discharge Planning/Care Management CM Discharge Assessment Start: 10/31/21 15:54 Freq: Status: Active Protocol: Document 10/31/21 15:54 BF (Rec: 10/31/21 15:56 BF [id number]) Discharge Planning Assessment Assigned Director Prospect RUY Nelson DPOA/Assigned Designee Name informally spouse Advance Directives? No Advance Directives on File No History Provided By Patient,Medical Record Has Patient been admitted in last 30 No days? Prior Living Arrangements House Household Members spouse,children Type of transporation used prior to Drives own vehicle admit Independent with ADL's Yes Is patient alert and oriented? Yes Caregiver for Another Yes: 2 children at home Barriers to Discharge No Discharge Plan Home Transportation Arrangement Spouse can transport Referrals Initiated None needed Whiteboard Updated in Patient Room with Yes name and ext. # of Director Prospect Review Status In Process Please Provide Date Initial DC 10/31/21 Assessment Was Performed Next Review Type Continued Stay Review Pre-Anesthesia Assessment Start: 10/24/21 13:54 Freq: Status: Complete Protocol: Document 10/24/21 13:54 CAB (Rec: 10/24/21 14:01 [facility] [id number]) Pre-Anesthesia Assessment Patient Information Reviewed Via Chart Review Comment COVID screen @ [facility] 10/29/21 Primary Care Provider Randolph King Seen Specialist in Last 12 Months Yes Specialist Seen Emergency,Route Sales Driver, Petroleum Plant Operator,Other Primary Language Romanian Stunner Required No Height 159.39 cm Weight 75.75 kg Body Mass Index (BMI) 29.8 Barriers to Learning None Other Aids No Hx Anesthesia Reactions No Hx Family Anesthesia Reaction No Hx Malignant Hyperthermia No Hx Blood Transfusion Reaction No Anesthesia Review Requested No Cash Room Clerk No alcohol intake current Smoking Status Former smoker how long ago did patient quit smoking Quit 2009 Substance Use Type does not use History of Falling (Recent or History of No ) Patient is completely paralyzed or No completely immobile Mental Status Oriented to own ability Is patient on oxygen? No Does patient have WOODWARD/SOB No Hx Sleep Apnea No CPAP/BIPAP use not prescribed Hx Chest Pain Yes: s/p bronchoscopy 2020 Hx SOB No Hx Syncope or Dizziness No Anti-Coagulant Therapy No Cardiac Testing No Hx Pacemaker/ICD No Pacemaker Rep Required? No Urinary Catheter Present No Hx Urinary Self Catheterization No Diabetes No Patient No Lactating No Presence of External or Internal Medical Yes: left upper dental implant Devices Marital Status Lives With spouse Patient Discharge Plan Description Return Home Advance Directives? No Power of Nurse Clinical No
[2021-10-31] MEDS: IBUPROFEN 600 MG TABLET PO (18:09)
--- NOTE | 2021-10-31 18:38 | P.PN_ITS ---
Subjective Subjective Date Patient Seen: 10/31/21 Time Patient Seen: 18:39 Interval history: Patient is a 36-year-old 5 para 5 postop day # 1 status post lap aroscopic supracervical hysterectomy with bilateral salpingectomy. The first postop night was rough with pain management. She is getting IV morphine in between oxycodone doses. She is having some nausea this morning which she thinks is related to the morphine. Using Zofran and Reglan. Was using ice on the incisions. Exam Vital Signs (past 8 hours): - 10/31/21 12:28 10/31/21 17:05 Temperature 96.8 F L 97.6 F Pulse Rate 79 110 H Respiratory Rate 18 18 Blood Pressure 123/75 135/68 Pulse Oximetry 100 97 Oxygen Delivery Method Room Air Oxygen Flow Rate 0 Narrative Exam Narrative: Generally: A well-developed, well-nourished female, no acute distress Lungs: Clear to auscultation bilaterally Cardiovascular: Regular rate and rhythm Abdomen: Soft and flat. Good bowel sounds Incisions: Clean dry and intact with dressings Extremities: Negative Homans Objective Labs Result Diagrams: 10/31/21 06:10 10/31/21 06:10 Labs: Laboratory Results - last 24 hr 10/31/21 10/31/21 06:10 06:10 WBC 9.3 RBC 4.36 Hgb 12.8 Hct 37.0 MCV 84.9 MCH 29.3 MCHC 34.5 RDW 13.0 Plt Count 233 Neut % (Auto) 78.9 H Lymph % (Auto) 9.1 L Franklin % (Auto) 11.3 Eos % (Auto) 0.4 L Baso % (Auto) 0.3 Neut # (Auto) 7300 H Lymph # (Auto) 800 L Franklin # (Auto) 1000 H Eos # (Auto) 0 Baso # (Auto) 0 Sodium 138 Potassium 4.5 Chloride 105 Carbon Dioxide 28 BUN 9 Creatinine 0.82 Estimated GFR > 60.0 BUN/Creatinine Ratio 11.0 Glucose 122 H Calcium 9.3 PFSH Medical History (Updated 10/29/21 @ 20:18 by Deloris Mulligan MD) Asthma (1999) Chronic myofascial pain Former smoker Grand multiparity (09/29/17) Hayfever Herpes (~2008) Migraines Painful menstrual periods (2013) Psoriasis (2003) Sarcoid arthropathy Sarcoidosis Surgical History (Updated 10/24/21 @ 14:00 by Dana Lopez RN) History of bilateral tubal ligation (04/15/18) History of bronchoscopy (02/05/21) No history of previous surgery Family History Child Age: 9 Leukemia Mother Age: 59 Thyroid cancer Mental health problem Father No problems noted. Family/Other Ephraim's disease Grandmother No problems noted. Social History household members: spouse and children Smoking Status: Former smoker alcohol intake: current Assessment & Plan Post-op Postoperative Procedures: Procedures Operation Date: 10/30/21 09:15 Actual Procedure Side Surgeon p Laparoscopic Supracervical Hysterectomy w. bilateral salpingectomy Deloris Mulligan MD Postoperative day: 1 Postoperative status: doing well (Pain management and nausea markedly improved) Postoperative plan: routine post-op care Postoperative plan narrative: Plan discharge in the morning Time Spent With Patient Time with patient: 15-24 minutes
[2021-10-31] MEDS: GABAPENTIN 300 MG CAPSULE PO (20:19)
[2021-10-31] MEDS: OXYCODONE IR 5 MG TABLET PO (20:20)
[2021-11-01] MEDS: ACETAMINOPHEN 325 MG TABLET 650 MG PO ×3 (00:02→12:50)
[2021-11-01] MEDS: IBUPROFEN 600 MG TABLET PO ×3 (00:02→12:51)
--- NOTE | 2021-11-01 00:24 | PC.NURSE ---
Patient is alert and oriented. Breath sounds CTA with RA sat of 96%. HRR. Denied nausea. BT present and is passing flatus. Abdomen is soft but asphalt still operator with incisional/gas pains with severity of 6-7/10. Received oxycodone at 2020 for 6/10 pain and then needed IV Morphine at 2136 as pain had increased to 7/10. When scheduled Tylenol + Ibuprofen administered at 0000 patient had to be awakened but still stated pain was 6/10. Allevyn dressings to abdomen are all CDI. No drainage noted on peripad. Patient is now independent with all mobility; encouraged to be to walk in halls but has, so far, declined to do so. Wearing bilateral calf SCD's. At 2300 patient requested IVF be stopped as she was not able to get much sleep due to having to get up to void frequently. Patient has been taking good po intake and has not had any further nausea. Discussed with coordinator, Meme, and IVF stopped per patient request. Fall risk score is moderate.
[2021-11-01 00:29] VITALS: BP 105/57; PULSE 69; RESP 16; TEMP 37; O2SAT 97
[2021-11-01] MEDS: OXYCODONE IR 10 MG TABLET PO ×3 (02:09→09:53)
[2021-11-01 04:43] VITALS: BP 113/61; PULSE 66; RESP 15; TEMP 36.8; O2SAT 97
[2021-11-01 08:31] VITALS: BP 137/84; PULSE 79; RESP 18; TEMP 36.3; O2SAT 98
--- NOTE | 2021-11-01 09:17 | PM.DS.1 ---
History of Present Illness History of Present Illness Date Patient Seen: 11/01/21 Time Patient Seen: 09:17 Chief complaint: OPB Narrative: Patient is a 36-year-old 5 para 5 postop day # 2 status post laparoscopic supracervical hysterectomy with bilateral salpingectomy. She had some pain management issues on postop day # 1. Those are under control today. She did receive 1 dose of IV hydrocortisone 100 mg. No nausea or vomiting. Patient has voided without the catheter. She is tolerating a diet. Her pain is well controlled. She is ambulating independently. Discharge Providers Provider Date of admission: 10/31/21 13:15 Discharge Date: 11/01/21 Primary care physician: Randolph King MD Discharge provider: Deloris Mulligan MD Summary Hospital Course Discharge Diagnosis: Post ablation syndrome Severe dysmenorrhea Postop pain management issues Hospital Course: Pat is ambulating independently. is a 36-year-old 5 para 5 who is postop day # 2 status post laparoscopic supracervical hysterectomy with bilateral salpingectomy. On postop day # 1 she had some pain management issues. She was given 100 mg of IV hydrocortisone due to sarcoidosis to see if this would help with pain management. This morning her pain is well controlled. No nausea or vomiting. She has voided without the catheter. She is ambulating independently. She desires to go home. Status at Discharge Cognitive/behavioral status at discharge: oriented Functional status at discharge: independent ambulation Overall status at discharge: patient is progressing back to baseline Time Spent with Patient Time spent: Less than 30 minutes Exam Vital Signs (past 8 hours): - 11/01/21 04:43 11/01/21 08:31 Temperature 98.2 F 97.3 F L Pulse Rate 66 79 Respiratory Rate 15 18 Blood Pressure 113/61 137/84 Pulse Oximetry 97 98 Oxygen Delivery Method Room Air Oxygen Flow Rate 0 Narrative Exam Narrative: Generally: Patient is sitting up in bed, no acute distress Lungs: Clear to auscultation bilaterally Cardiovascular: Regular rate and rhythm Abdomen: Soft and flat. Good bowel sounds. Incisions: Clean dry and intact with Allevyn dressings Extremities: No edema, negative Homans Objective Labs Result Diagrams: 10/31/21 06:10 10/31/21 06:10 [facility] Medical History (Updated 10/29/21 @ 20:18 by Deloris Mulligan MD) Asthma (1999) Chronic myofascial pain Former smoker Grand multiparity (09/29/17) Hayfever Herpes (~2008) Migraines Painful menstrual periods (2013) Psoriasis (2003) Sarcoid arthropathy Sarcoidosis Surgical History (Updated 10/24/21 @ 14:00 by Dana Lopez RN) History of bilateral tubal ligation (04/15/18) History of bronchoscopy (02/05/21) No history of previous surgery Family History Child Age: 9 Leukemia Mother Age: 59 Thyroid cancer Mental health problem Father No problems noted. Family/Other Ephraim's disease Grandmother No problems noted. Social History household members: spouse and children Smoking Status: Former smoker alcohol intake: current Discharge Assessment & Plan Assessment and Plan Assessment: Assessment: 36-year-old 5 para 5 postop day # 2 status post laparoscopic supracervical hysterectomy with bilateral salpingectomy Patient doing very well Plan of Treatment: Plan: Discharge to home Follow-up in 2 weeks Discharge Plan Discharge Plan Patient Disposition: Home Provider Discharge Comment: Call with fever, chills, redness or drainage around the incisions, or bleeding vaginally more than spotting to light Ibuprofen 600 mg every 6 hours Tylenol 650 mg every 6 hours Oxycodone in between as needed Recommend stool softener until bowels back to normal Discharge orders & Medications Prescriptions: New oxycodone 10 mg tablet 10 mg PO Q4H PRN (Reason: pain) Qty: 30 0RF Continued valacyclovir [Valtrex] 500 mg tablet 500 mg PO BID Qty: 10 3RF methotrexate sodium 2.5 mg tablet 10 mg PO QWEEK 0RF Label Comments: titrating up to 20mg weekly folic acid 1 mg tablet 1 mg PO DAILY 0RF gabapentin 300 mg capsule 300 mg PO BEDTIME Qty: 90 3RF duloxetine 40 mg capsule,delayed release(DR/EC) 40 mg PO DAILY Qty: 90 3RF pantoprazole 40 mg tablet,delayed release (DR/EC) 40 mg PO DAILY 0RF Discontinued oxycodone 5 mg tablet 5 mg PO Q4H PRN (Reason: pain) Qty: 20 0RF Follow up/Referrals: Deloris Mulligan MD [Physician] - 11/15/21 4:45 pm (Telehealth appt already booked) Diet/Activity/Treatments Diet: Regular Activity: Nothing in the vagina No heavy lifting. Nothing more than a gal of milk Skin/Wound/Dressing Care Report to your healthcare provider any signs of infection, such as:: chills, fever, increased pain, unusual drainage and unusual redness Dressing: Remove outer pink dressings with attached guaze tomorrow after a shower Visit Report/Discharge Packet Instructions: DI for Hysterectomy, DI for Laparoscopy, DI for Prescription Opioid Use Stand Alone Forms: Surgery Discharge Discharge Data Primary Care Provider: Randolph King
[2021-11-01] MEDS: DULOXETINE 20 MG CAPSULE 40 MG PO (09:53)
[2021-11-01] MEDS: DOCUSATE 100 MG CAPSULE 200 MG PO (09:53)
[2021-11-01] MEDS: PANTOPRAZOLE DR 40 MG TABLET PO (09:53)
[2021-11-01] MEDS: valACYclovir 500 MG TABLET PO (09:53)
[2021-11-01] MEDS: FOLIC ACID 1 MG TABLET PO (09:53)
[2021-11-01 12:23] VITALS: BP 107/67; PULSE 73; RESP 18; TEMP 36.2; O2SAT 97
--- NOTE | 2021-11-01 14:02 | PC.NURSE ---
Pt discharged at 1:45, escorted off floor in wheelchair accompanied by and hospital staff. IV removed, discharge teaching completed including follow up appointments and new medications. Questions answered. Pt left floor with all belongings.
== END 2021-11-01 14:06 | disposition home or self-care (01) | DRG 743 ==
PROVIDERS: Admitting Provider Obstetrics & Gynecology; PCP Internal Medicine; Referring Provider Obstetrics & Gynecology; Visit Provider Obstetrics & Gynecology
PROC: 0UT94ZL Resection of Uterus, Supracervical, Percutaneous Endoscopic Approach (ICD-10-PCS; CPT 58542; principal; 2021-10-30 09:15)
DX: N99.85 Post endometrial ablation syndrome (principal); R11.0 Nausea; K21.9 Gastro-esophageal reflux disease without esophagitis; F41.9 Anxiety disorder, unspecified; L40.9 Psoriasis, unspecified; D86.9 Sarcoidosis, unspecified; Z20.822 Contact with and (suspected) exposure to COVID-19; Z87.891 Personal history of nicotine dependence; N83.6 Hematosalpinx
CPT/HCPCS: 58542; 36415; 80048; 85025; G0378; J0131; J0171; J0330; J0690; J1100; J1170; J1720; J1885; J2250; J2270; J2405; J2704; J2765; J2795; J3010; J3410

== ENCOUNTER → 2022-08-07 10:22 | Outpatient (CLI) | payer OTHER, SELFPAY ==
[2022-08-07 11:52] LABS: COVID19 -Nasal RAPID Negative (Negative)
== END ==
PROVIDERS: PCP Internal Medicine; Visit Provider Surgery
DX: Z20.822 Contact with and (suspected) exposure to COVID-19 (principal); Z01.812 Encounter for preprocedural laboratory examination
CPT/HCPCS: 87635; C9803

== ENCOUNTER 2022-08-08 07:26 | Day surgery (SDC) | payer OTHER, SELFPAY ==
--- NOTE | 2022-08-08 | PATH_ITS ---
[facility] Accession Number: [id number] . 01 Material submitted: . PART A: duodenum - DUODENAL PART B: stomach - ANTRUM PART C: esophagus - DISTAL ESOPHAGUS PART D: ileum - TI PART E: colon - RIGHT COLON . 01 Diagnosis: A. Duodenum, Biopsy: Duodenal mucosa with no diagnostic abnormality. Negative for active inflammation, features of sprue, dysplasia, or malignancy. . B. Antrum, Biopsy: Gastric mucosa with mild chronic inflammation. No Helicobacter pylori organisms identified on immunohistochemical evaluation. No intestinal metaplasia, dysplasia, or malignancy identified. . C. Distal Esophagus, Biopsy: Squamous mucosa with changes consistent with reflux and with active inflammation. Proximal gastric glandular mucosa with mild chronic inflammation. No specialized intestinal metaplasia or fungal organisms identified on special stain. No dysplasia or malignancy. . D. Terminal Ileum, Biopsy: Small bowel mucosa with no diagnostic abnormality. Negative for active inflammation, dysplasia, and malignancy. . E. Right Colon, Biopsy: Colonic mucosa with no diagnostic abnormality. Negative for active, chronic, and microscopic colitis. Negative for dysplasia and malignancy. [facility] 08/13/2022 1259 Local . 01 Electronically signed: . Vaishali Guerrero MD, Pathologist NPI- [id number] . 01 Gross description: . Part A: DUODENAL: Received in formalin are 2 fragment(s) of brannon, soft tissue measuring 0.3 x 0.2 x 0.2 cm to 0.3 x 0.2 x 0.1 cm submitted entirely in 1 cassette(s) Part B: ANTRUM: Received in formalin are 3 fragment(s) of brannon, soft tissue measuring 0.4 x 0.2 x 0.1 cm to 0.3 x 0.2 x 0.2 cm submitted entirely in 1 cassette(s) Part C: DISTAL ESOPHAGUS: Received in formalin are 2 fragment(s) of brannon, soft tissue measuring 0.4 x 0.2 x 0.2 cm to 0.3 x 0.2 x 0.1 cm submitted entirely in 1 cassette(s) Part D: TI: Received in formalin are 2 fragment(s) of brannon, soft tissue measuring 0.3 x 0.2 x 0.2 cm to 0.3 x 0.1 x 0.1 cm submitted entirely in 1 cassette(s) Part E: RIGHT COLON: Received in formalin are 2 fragment(s) of brannon, soft tissue measuring 0.5 x 0.2 x 0.1 cm to 0.3 x 0.1 x 0.1 cm submitted entirely in 1 cassette(s) /CPE 08/09/2022 0546 Local . 01 Microscopic: . B. An immunohistochemical stain was performed to evaluate for Helicobacter organisms and is negative. The control stain showed appropriate reactivity. . * This test was developed and its performance characteristics determined by [employer]. It has not been cleared or approved by the U.S. Food and Drug Administration. The FDA has determined that such clearance or approval is not necessary. This test is used for clinical purposes. It should not be regarded as investigational or for research. . 01 Pathologist provided ICD-10: K29.70, K21.00 . 01 CPT . 601274, 818054, 258247, 271168, [id number] Specimen Comment: A courtesy copy of this report has been sent to [phone] Performed at: 01 [facility] [address] [place] [address] [address] [facility], [place], [place] [id number] MD Rl Quiles MD Phone: [phone]
[2022-08-08 07:43] VITALS: BP 139/93; PULSE 106; RESP 12; TEMP 36.8; O2SAT 99; BMI 30.2
[2022-08-08] MEDS: LACTATED RINGERS 1,000 ML 150 ML IV (07:56)
--- NOTE | 2022-08-08 08:24 | PM.HP.1 ---
History of Present Illness History of Present Illness Date Patient Seen: 08/08/22 Time Patient Seen: 08:24 Chief complaint: EGD/Colonoscopy Narrative: Renea is here for her EGD and colonoscopy. No changes to her health since we met in June. Patient History Medical History Asthma (1999) Chronic myofascial pain Former smoker Grand multiparity (09/29/17) Hayfever Herpes (~2008) Migraines Painful menstrual periods (2013) Psoriasis (2003) Sarcoid arthropathy Sarcoidosis Surgical History History of bilateral tubal ligation (04/15/18) History of bronchoscopy (02/05/21) No history of previous surgery Family & Social History Family History Child Age: 10 Leukemia Mother Age: 60 Thyroid cancer Mental health problem Father No problems noted. Family/Other Ephraim's disease Grandmother No problems noted. Social History: household members spouse,children Tobacco & Substance use: Smoking Status Former smoker alcohol intake never alcohol intake frequency holiday/special occasion Substance Use Type does not use Meds Home Medications and Allergies Home Medications Medication Instructions Recorded Confirmed Type valacyclovir 500 mg tablet 500 mg PO BID #10 tabs 05/17/20 08/08/22 Rx (Valtrex) pantoprazole 40 mg tablet,delayed 40 mg PO DAILY 01/11/21 08/08/22 History release folic acid 1 mg tablet 1 mg PO DAILY 02/09/21 06/19/22 History methotrexate sodium 2.5 mg tablet 10 mg PO QWEEK 02/09/21 08/08/22 History gabapentin 300 mg capsule 300 mg PO BEDTIME #90 caps 06/12/21 08/08/22 Rx duloxetine 40 mg capsule,delayed 40 mg PO DAILY #90 caps 09/10/21 08/08/22 Rx release sodium sul 1.479 gram-potas ch See Rx Instructions PO PER PKG DIR 06/19/22 Rx 0.188 gram-magnes sul 0.225 gram #24 tabs tablet (Sutab) hydroxychloroquine 200 mg tablet mg PO 08/08/22 History sulfasalazine 500 mg PO 08/08/22 History tablet,delayed release Allergies Allergy/AdvReac Type Severity Reaction Status Date / Time No Known Drug Allergies Allergy Verified 08/08/22 07:42 Exam Vital Signs (past 8 hours): - 08/08/22 07:43 Temperature 98.3 F Pulse Rate 106 H Respiratory Rate 12 Blood Pressure 139/93 H Pulse Oximetry 99 Oxygen Delivery Method Room Air Oxygen Delivery Method Room Air Const General: healthy appearing Assessment & Plan Assessment and plan (1) Sarcoidosis: Status: Chronic Plan We reviewed the risks and benefits of EGD and colonoscopy and she would like to proceed. Time Spent With Patient Critical Care time: I spent a total of [] minutes of critical care time on this patient's care today; this time is exclusive of procedural time.
[2022-08-08 09:03] VITALS: BP 104/70; PULSE 76; RESP 16; TEMP 36.6; O2SAT 98
--- NOTE | 2022-08-08 09:03 | PM.OP.EC ---
Operative Date/Time/Diagnoses Date of procedure: 08/08/22 Time of procedure: 09:03 Pre-op diagnosis: Dyspepsia Post-op diagnosis: same Procedure & Clinicians Study performed: EGD and colonoscopy Same procedure as scheduled: Yes Surgeon: Hubert Dawkins Procedure Notes Procedure in detail: Surgeon: Hubert Dawkins MD Anesthesia: Mike Asher D.O. Procedure in detail: A timeout was performed. A bite blocked was placed and monitors were attached to the patient. The patient was positioned in a left lateral decubitus position. Sedation was administered by Dr. Asher. Once the patient was sedated the endoscope was inserted through the bite block and passed through the esophagus and stomach and into the duodenum. The duodenum appeared normal. Random biopsies were taken from the duodenum. The duodenal bulb appeared normal.. We then withdrew the scope into the stomach. There was some moderate antritis with some small ulcerations. Random biopsies were taken from the antrum. The endoscope was retroflexed and no further abnormalities were seen. The endoscope was straightned and withdrawn into the esophagus. There was some rather mild distal esophagitis and random biopsies were taken the distal esophagus. Findings: Moderate antritis and mild distal esophagitis. Next we repositioned the patient for a colonoscopy. A digital rectal exam was performed and was normal. The colonoscope was inserted and advanced to the cecum. The appendiceal orifice was identified and photographed. The terminal ileum was intubated and random biopsies were taken from the terminal ileum. The scope was slowly withdrawn over greater than 6 minutes. No abnormalities were noted. Random biopsies were taken from the colon mucosa of the ascending colon. The scope was retroflexed in the rectum and no further abnormalities were noted. Findings: Normal colon and terminal ileum EBL: 5 mL Scope withdrawal time: 10 minutes Sedation minutes: 28 minutes Post-procedure Disposition: PACU
[2022-08-08 09:09] VITALS: BP 107/76; PULSE 75; RESP 21; TEMP 36.5; O2SAT 100
[2022-08-08 09:14] VITALS: BP 118/80; PULSE 74; RESP 16; TEMP 36.5; O2SAT 99
[2022-08-08 09:20] VITALS: BP 114/67; PULSE 81; RESP 18; TEMP 36.4; O2SAT 99
== END 2022-08-08 09:37 | disposition home or self-care (01) ==
PROVIDERS: PCP Internal Medicine; Referring Provider Surgery; Visit Provider Surgery
PROC: 0DJ08ZZ Inspection of Upper Intestinal Tract, Via Natural or Artificial Opening Endoscopic (ICD-10-PCS; CPT 43235; principal; 2022-08-08 08:30)
PROC: 0DJD8ZZ Inspection of Lower Intestinal Tract, Via Natural or Artificial Opening Endoscopic (ICD-10-PCS; CPT 45378; 2022-08-08 08:30)
DX: K20.90 Esophagitis, unspecified without bleeding (principal); K29.50 Unspecified chronic gastritis without bleeding
CPT/HCPCS: 45380; 43239; J2704; J3010

== ENCOUNTER → 2024-03-12 11:59 | Outpatient (CLI) | payer OTHER, SELFPAY ==
[2024-03-12 13:19] LABS: Add Manual Diff / Slide Review NO; Basophils Absolute Auto 0 /uL (0-100); Basophils Percent Auto 0.7 % (0-2); Eosinophils Absolute Auto 300 /uL (0-450); Eosinophils Percent Auto 5.5 % (2-4); Hematocrit 40.9 % (36-46); Lymphocytes Absolute Auto 1500 /uL (1100-4500); Lymphocytes Percent Auto 24.9 % (25-40); Mean Corpuscular HGB Conc 34.1 % (30-36); Mean Corpuscular Hemoglobin 29.6 PG (26-34); Mean Corpuscular Volume 86.8 fL (80-100); Monocytes Absolute Auto 600 /uL (0-900); Monocytes Percent Auto 10.1 % (3-14); Neutrophils Absolute Auto 3600 /uL (1500-7000); Neutrophils Percent Auto 58.8 % (50-75); Platelet Count 223 X10^3/uL (150-400); Red Blood Cell Count 4.72 X10^6/uL (4.0-5.2); White Blood Cell Count 6.2 X10^3/uL (4.5-11.0)
[2024-03-12 13:40] LABS: Alanine Aminotransferase 32 IU/L (<35); Albumin 4.5 g/dL (3.5-5.0); Albumin Globulin Ratio 1.9 (1.0-2.8); Alkaline Phosphatase 63 U/L (38-126); Aspartate Aminotransferase 28 IU/L (14-36); BUN Creatinine Ratio 10.7 (6-22); Bilirubin Total 0.8 mg/dL (0.2-1.3); Blood Urea Nitrogen 8 mg/dL (7-17); C-Reactive Protein Quant < 0.5 mg/dL (<1.0); Calcium 9.4 mg/dL (8.4-10.2); Carbon Dioxide 20 mmol/L (22-32); Chloride 110 mmol/L (98-107); Estimated Glomerular Filt Rate > 60 mL/min (>60); Globulin 2.4 g/dL (1.7-4.1); Glucose 87 mg/dL (70-100); HEMOLYSIS < 15 (0-50); Potassium 4.1 mmol/L (3.4-5.1); Sodium 138 mmol/L (137-145); Total Protein 6.9 g/dL (6.3-8.2)
[2024-03-12 14:08] LABS: TSH w/ Reflex to FT4 1.47 uIU/mL (0.47-4.68)
[2024-03-12 14:27] LABS: Vitamin B12 626 pg/mL (239-931)
[2024-03-12 14:50] LABS: Erythrocyte Sedimentation Rate 5 MM/HR (0-20)
[2024-03-14 10:40] LABS: Calcium 9.4 mg/dL (8.7-10.2); Parathyroid Hormone, Intact 54 pg/mL (15-65)
[2024-03-22 05:36] LABS: 1,25-Dihydroxy, Vitamin D-2 <10 pg/mL (.)
== END ==
PROVIDERS: PCP Internal Medicine; Referring Provider Internal Medicine; Visit Provider Internal Medicine
DX: E55.9 Vitamin D deficiency, unspecified (principal); E54 Ascorbic acid deficiency; D86.9 Sarcoidosis, unspecified; M79.18 Myalgia, other site; G89.29 Other chronic pain; K29.50 Unspecified chronic gastritis without bleeding; D64.9 Anemia, unspecified; E83.51 Hypocalcemia; E53.8 Deficiency of other specified B group vitamins
CPT/HCPCS: 36415; 80053; 82180; 82310; 82607; 82652; 83970; 84443; 85025; 85651; 86140

== ENCOUNTER 2024-10-30 18:47 | Emergency (ER) | payer OTHER, SELFPAY ==
[2024-10-30 18:54] VITALS: BP 137/85; PULSE 78; RESP 19; TEMP 36.7; O2SAT 98
--- NOTE | 2024-10-30 20:57 | ED_ITS ---
HPI - Head Injury General Chief complaint: Head Injury Stated complaint: finger lac Time Seen by Provider: 10/30/24 20:57 Source: patient, EMS, RN notes reviewed and old records reviewed Mode of arrival: EMS Limitations: no limitations History of Present Illness HPI Narrative: 39-year-old female history of sarcoidosis, asthma who presents with complaint of laceration to her 2nd and thumb. Patient states she looked at it and realized it was very deep maybe down to the bone and next thing she remembers she woke up on the floor. She states she got up but still felt very lightheaded and had possibly another syncopal episode. She states she did hit her head she was little bit of a headache, she states nausea but no vomiting. No neck pain, no chest pain or shortness of breath. No new numbness tingling or weakness. She states she did not ambulate but a little bit weekly after it happened. She was not had anything to eat or drink since earlier today. This happened at about 6:00 p.m today. States she does take medications for her sarcoid regularly states no anticoagulants or aspirin. She was transported via EMS. No known drug allergies. Former smoker, occasional alcohol, no recreational drugs. Related Data Home Medications Medication Instructions Recorded Confirmed folic acid 1 mg tablet 5 mg PO DAILY 02/06/24 09/13/24 pantoprazole 40 mg tablet,delayed 40 mg PO BID 02/06/24 09/13/24 release prednisone 10 mg tablet 10 mg PO DAILY PRN 04/02/24 09/13/24 Previous Rx's Medication Instructions Recorded gabapentin 300 mg capsule 600 mg (2 x 300 mg) PO BEDTIME #90 02/06/24 caps bupropion HCl 150 mg 24 hr tablet, 150 mg PO QAM #90 tabs 03/16/24 extended release hydroxychloroquine 200 mg tablet 400 mg (2 x 200 mg) PO DAILY #60 05/03/24 tabs clobetasol 0.05 % topical cream 1 applic topical BID #30 grams 09/13/24 clorazepate dipotassium 3.75 mg 3.75 mg PO BID #60 tabs 09/13/24 tablet duloxetine 30 mg capsule,delayed 30 mg PO DAILY #90 caps 09/13/24 release duloxetine 60 mg capsule,delayed 60 mg PO DAILY #90 caps 09/13/24 release Allergies Allergy/AdvReac Type Severity Reaction Status Date / Time No Known Drug Allergies Allergy Verified 09/13/24 14:50 Review of Systems Review of Systems ROS Unobtainable: All systems reviewed & are unremarkable except as noted in HPI and below Patient History Medical History Depression Anxiety Fatty liver Chronic gastritis Vitamin D3 deficiency Vitamin C deficiency Sarcoid arthropathy Chronic myofascial pain Sarcoidosis Former smoker Asthma (1999) Hayfever Migraines Psoriasis (2003) Painful menstrual periods (2013) Herpes (~2008) Grand multiparity (09/29/17) Surgical History History of bronchoscopy (02/05/21) History of bilateral tubal ligation (04/15/18) No history of previous surgery Family History Child Age: 13 Leukemia Mother Age: 63 Thyroid cancer Mental health problem Father No problems noted. Family/Other Ephraim's disease Grandmother No problems noted. Social History household members: spouse and children Smoking Status: Former smoker alcohol intake: never Smoking Status: Former smoker alcohol intake frequency: holidays/special occasions only Exam Narrative Exam Narrative: GEN: well nourished, well appearing female, alert and oriented x 3, patient appears to be in mild distress. HEENT: Small right parietal hematoma, pupils are equal round reactive to light, extraocular movements are intact, nares are clear, TMs are clear with no fluid, no hemotympanum, there is no conjunctival pallor. Throat is clear without any exudates, erythema, tonsillar enlargement or uvular deviation, no cervical vertebral tenderness, normal range of motion. HEART: Regular rate and rhythm without murmur, clicks, rubs. LUNGS:Lungs clear to auscultation, no wheezes, rales, crackles, chest moves symmetrically ABD:bowel sounds normal, soft, non-tender, no guarding, rebound, rigidity, no masses noted, no hepatosplenomegaly MSCL: Patient has a proximally 1 cm laceration on the radial side of the 2nd finger between the middle and proximal interphalangeal joints that is the soft tissue. It does gape quite a bit. Patient has full range of motion no weakness. She can flex and extend fully. Cap refills less than 2 seconds in all 5 fingers. Does not appear to have any weakness with comparison to her other fingers. She also has a small laceration the appears to be more superficial on the posterior thumb this is between the distal and proximal interphalangeal joint. It does not gape with movement. Patient has full range of motion. No muscle atrophy, muscles strength 5/5 upper and lower extremities, full range of motion. NEURO:CN 2-12 intact, sensation normal Initial Vital Signs Initial Vital Signs: Vital Signs Temperature 98.0 F 10/30/24 18:54 Pulse Rate 78 10/30/24 18:54 Respiratory Rate 19 10/30/24 18:54 Blood Pressure 137/85 10/30/24 18:54 Pulse Oximetry 98 10/30/24 18:54 Oxygen Delivery Method Room Air 10/30/24 18:54 Procedures Laceration Repair Laceration 1: Site: hand (2nd finger) Side (If applicable): left Size (cm): 1 Description: linear and clean Depth: simple, single layer Local Anesthetic: lidocaine 2% Amount of anesthesia used (mL): 3 Pre-repair: wound explored, irrigated extensively and deep structures intact Skin layer closed with: nylon Skin layer suture size: 4-0 Number of sutures: 5 Technique: simple, interrupted Laceration 2: Time of procedure: 21:53 Description: linear Depth: simple, single layer (superficial ) Pre-repair: wound explored, irrigated extensively and deep structures intact Skin layer closed with: steri-strips Course Orders Ordered: ED Orders 10/30/24 21:07 EKG-12 Lead Stat Discontinued Medications Diphtheria/Tetanus/Acell Pertussis (Tet,Diph,Pertuss(Acell),Vac/Pf 0.5 Ml Syringe) 0.5 ml IM .ONCE ONE Stop: 10/30/24 21:16 Last Admin: 10/30/24 21:56 Dose: 0.5 ml Documented By: LANCE Ibuprofen (Ibuprofen 400 Mg Tablet) 800 mg PO NOW ONE Stop: 10/30/24 21:08 Last Admin: 10/30/24 21:14 Dose: 800 mg Documented By: Lidocaine HCl (Lidocaine 2% Inj Sdv 5ml) 10 ml INJ NOW ONE Stop: 10/30/24 21:08 Last Admin: 10/30/24 21:55 Dose: 10 ml Documented By: LANCE Ondansetron HCl (Ondansetron 4 Mg Odt) 4 mg SL NOW ONE Stop: 10/30/24 21:08 Last Admin: 10/30/24 21:14 Dose: 4 mg Documented By: Vital Signs Vital signs: Vital Signs - 8 hr 10/30/24 22:23 Temperature 98.2 F MDM - Head Injury ECG Data Attestation: I personally reviewed and interpreted this ECG as follows: Prior ECG tracings: not available for review Interpretation: Sinus bradycardia rate of 53 [place] 178 QRS 80 QTC of 395, no acute ST elevation depression. No priors for comparison. MDM Narrative Medical decision making narrative: 39-year-old female presents with complaint of accidental laceration to her 2nd and 1st finger on her left hand. The left thumb appears to be superficial does not require repair. The left fingers quite deep but she is neurovascularly intact with full range of motion and sensation. Wound on the 2nd finger was sutures, on the 1st finger was very superficial does not really gape but was reinforced with Steri-Strips after being cleansed. Tetanus was in 2018 was updated. Patient has a what sounds like a vagal episode possibly to, so EKG was obtained. Sinus bradycardia, no acute ST changes. She does note a little bit of a headache and some nausea essentially mild concussion but no red flag symptoms at this time necessitating head CT or CT cervical spine. Patient had ibuprofen and Zofran. Ambulation trial patient tolerated well. Discharge Plan Departure Patient Disposition: Home Clinical Impression: Laceration of finger, Superficial laceration of thumb, Syncope, vasovagal Instructions: Concussion Activity Restrictions/Additional Instructions: Wound Care: Keep wound(s) clean and dry. Wash daily with soap and water only. Do not use over the counter products (alcohol or peroxide)on the wounds unless instructed by a physician. You can use topical triple antibiotic ointment to the laceration twice daily. If wound condition worsens (increased/expanding redness, developing fluid blisters, or worsening pain), either contact your doctor for an urgent re- assessment , or return to the Emergency Department. Return to the ED, urgent care, or visit a primary care doctor for removal of sutures in 7-10 days Return if fever greater than 100.4 Fahrenheit, increased swelling, increasing pain or worsening symptoms such as increased discharge or spreading redness, severe headaches, changes to mentation, new neck or back pain, persistent vomiting, new numbness tingling or weakness, loss of bowel or bladder control, new chest pain or shortness of breath, passing out or other new or concerning changes. Prescriptions: No Action bupropion HCl 150 mg tablet extended release 24 hr 150 mg PO QAM Qty: 90 3RF hydroxychloroquine 200 mg tablet 400 mg PO DAILY Qty: 60 3RF gabapentin 300 mg capsule 600 mg PO BEDTIME Qty: 90 3RF folic acid 1 mg tablet 5 mg PO DAILY pantoprazole 40 mg tablet,delayed release (DR/EC) 40 mg PO BID prednisone 10 mg tablet 10 mg PO DAILY PRN Rx Instructions: If in pain does 4 tabs daily. clobetasol 0.05 % cream 1 applic topical BID Qty: 30 1RF duloxetine 60 mg capsule,delayed release(DR/EC) 60 mg PO DAILY Qty: 90 3RF Rx Instructions: Take w/30 mg cap for a total of 90mg daily duloxetine 30 mg capsule,delayed release(DR/EC) 30 mg PO DAILY Qty: 90 3RF clorazepate dipotassium 3.75 mg tablet 3.75 mg PO BID Qty: 60 3RF Rx Instructions: start with bedtime only, may increase to twice daily if no sedation Referrals: Randolph King MD [Primary Care Provider] - Stand Alone Forms: Patient Portal/API/Survey
[2024-10-30] MEDS: IBUPROFEN 400 MG TABLET 800 MG PO (21:14)
[2024-10-30] MEDS: ONDANSETRON 4 MG ODT SL (21:14)
--- NOTE | 2024-10-30 21:22 | EKG_ITS ---
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
[2024-10-30] MEDS: LIDOCAINE 2% INJ SDV 5ML 10 ML INJ (21:55)
[2024-10-30] MEDS: TET,DIPH,PERTUSS(ACELL),VAC/PF 0.5 ML SYRINGE IM (21:56)
[2024-10-30 22:23] VITALS: TEMP 36.8
== END 2024-10-30 22:12 | disposition home or self-care (01) ==
PROVIDERS: Emergency Provider Emergency Medicine; PCP Internal Medicine
DX: S61.012A Laceration without foreign body of left thumb without damage to nail, initial encounter (principal); S61.211A Laceration without foreign body of left index finger without damage to nail, initial encounter; R55 Syncope and collapse; X58.XXXA Exposure to other specified factors, initial encounter; Z23 Encounter for immunization
CPT/HCPCS: 12001; 90471; 93005; 93010; 99284; 90715